=== PATIENT | male | born 1955 | race Caucasian/White ===

== ENCOUNTER 2017-12-15 08:28 | Outpatient (CLI) | payer MEDICAID, SELFPAY ==
[2017-12-15 08:52] LABS: Abs Immature Grans 0.01 k/cumm (0.0-0.09); Absolute Basophil Count 0.02 k/cumm (0.0-0.2); Absolute Eosinophil Count 0.15 k/cumm (0.0-0.7); Absolute Lymphocyte Count 0.81 k/cumm (1.2-3.4); Absolute Monocyte Count 0.38 k/cumm (0.11-0.7); Basophils % 0.6; Eosinophils % 4.3; HCT 35.9 % (40.0-50.0); HGB 12.2 g/dL (13.5-17.5); Immature Grans % 0.3; Lymphocytes % 23.3; Mean Corpuscular Hemoglobin 38.6 pg (27.0-33.0); Mean Corpuscular Volume 113.6 fL (80-95); Mean Platelet Volume 9.5 fL (8.0-11.0); Neutrophils % 60.5; RBC 3.16 m/cumm (4.50-6.00); RBC Distribution Width 14.5 % (11.8-14.1); White Blood Cell Count 3.47 k/cumm (4.4-10.8)
[2017-12-15 09:04] LABS: ALT 45 U/L (12-78); AST 28 U/L (15-37); Albumin 3.3 g/dL (3.4-5.0); Alkaline Phosphatase 100 U/L (46-116); Anion Gap 8.4 mmol/L (3-11); BUN 9 mg/dL (7-18); Bilirubin, Total 0.4 mg/dL (0.2-1.0); CO2 26.6 mmol/L (21.0-32.0); CREATININE 0.96 mg/dL (0.70-1.30); Calcium 8.4 mg/dL (8.5-10.1); Chloride 104 mmol/L (98-107); Glucose 133 mg/dL (70-100); Potassium 3.8 mmol/L (3.5-5.1); Sodium 139 mmol/L (136-145); Total Protein 7.6 g/dL (6.4-8.2)
[2017-12-15 09:07] LABS: Platelet Count 100 x1000/uL (130-400)
[2017-12-15 09:08] LABS: Diff Comment RBC Morph Reviewed; Macrocytosis 2+; Polychromasia Present
[2017-12-18 09:27] LABS: Kappa Free Light Chain 4.01 mg/dl (0.33-1.94); Lambda Free Light Chain 3.14 mg/dl (0.57-2.63)
[2017-12-18 14:15] LABS: Albumin 52.5 % (55.8-66.1)
== END 2017-12-15 08:48 ==
PROVIDERS: Nurse Practitioner Family; PCP Neuromusculoskeletal Medicine & OMM; Visit Provider Internal Medicine Hematology & Oncology
DX: C90.00 Multiple myeloma not having achieved remission (principal)
CPT/HCPCS: 36415; 80053; 83883; 84165; 85025

== ENCOUNTER 2018-04-09 14:11 | Outpatient (CLI) | payer MEDICAID, SELFPAY ==
[2018-04-09 15:56] LABS: Abs Immature Grans 0.02 k/cumm (0.0-0.09); Absolute Basophil Count 0.02 k/cumm (0.0-0.2); Absolute Eosinophil Count 0.16 k/cumm (0.0-0.7); Absolute Lymphocyte Count 0.83 k/cumm (1.2-3.4); Absolute Monocyte Count 0.49 k/cumm (0.11-0.7); Absolute Neutrophil Count 3.05 k/cumm (1.2-6.7); Basophils % 0.4; Eosinophils % 3.5; HCT 35.2 % (40.0-50.0); Immature Grans % 0.4; Lymphocytes % 18.2; Mean Corp. HGB Concentration 34.1 g/dL (32.0-36.0); Mean Corpuscular Hemoglobin 37.6 pg (27.0-33.0); Mean Corpuscular Volume 110.3 fL (80-95); Mean Platelet Volume 9.3 fL (8.0-11.0); Monocytes % 10.7; Neutrophils % 66.8; RBC 3.19 m/cumm (4.50-6.00); RBC Distribution Width 13.8 % (11.8-14.1); White Blood Cell Count 4.57 k/cumm (4.4-10.8)
[2018-04-09 16:23] LABS: ALT 29 U/L (12-78); AST 22 U/L (15-37); Albumin 3.5 g/dL (3.4-5.0); Alkaline Phosphatase 78 U/L (46-116); Anion Gap 8.6 mmol/L (3-11); BUN 13 mg/dL (7-18); Bilirubin, Total 0.4 mg/dL (0.2-1.0); CO2 29.4 mmol/L (21.0-32.0); CREATININE 0.96 mg/dL (0.70-1.30); Calcium 8.6 mg/dL (8.5-10.1); Chloride 102 mmol/L (98-107); Glucose 104 mg/dL (70-100); Potassium 4.2 mmol/L (3.5-5.1); Sodium 140 mmol/L (136-145); Total Protein 7.7 g/dL (6.4-8.2)
[2018-04-09 17:32] LABS: Diff Comment Diff Reviewed; Macrocytosis 2+; Platelet Count 101 x1000/uL (130-400); Polychromasia Present
[2018-04-10 10:40] LABS: Kappa Free Light Chain 3.34 mg/dl (0.33-1.94); Lambda Free Light Chain 1.78 mg/dl (0.57-2.63)
[2018-04-10 12:55] LABS: Albumin 53.9 % (55.8-66.1); Total Protein 7.1 g/dl (6.3-8.2)
== END 2018-04-09 14:31 ==
PROVIDERS: PCP Neuromusculoskeletal Medicine & OMM; Visit Provider Internal Medicine Hematology & Oncology
DX: C90.00 Multiple myeloma not having achieved remission (principal)
CPT/HCPCS: 36415; 80053; 83883; 84165; 85025

== ENCOUNTER 2018-06-29 14:51 | Outpatient (CLI) | payer MEDICAID, SELFPAY ==
[2018-06-29 16:09] LABS: Abs Immature Grans 0.01 k/cumm (0.0-0.09); Absolute Basophil Count 0.02 k/cumm (0.0-0.2); Absolute Eosinophil Count 0.16 k/cumm (0.0-0.7); Absolute Lymphocyte Count 0.85 k/cumm (1.2-3.4); Absolute Monocyte Count 0.54 k/cumm (0.11-0.7); Absolute Neutrophil Count 2.86 k/cumm (1.2-6.7); Basophils % 0.5; Eosinophils % 3.6; HCT 36.8 % (40.0-50.0); HGB 12.6 g/dL (13.5-17.5); Immature Grans % 0.2; Lymphocytes % 19.1; Mean Corp. HGB Concentration 34.2 g/dL (32.0-36.0); Mean Corpuscular Hemoglobin 38.2 pg (27.0-33.0); Mean Corpuscular Volume 111.5 fL (80-95); Mean Platelet Volume 9.5 fL (8.0-11.0); Monocytes % 12.2; Neutrophils % 64.4; Platelet Count 110 x1000/uL (130-400); RBC Distribution Width 13.9 % (11.8-14.1); White Blood Cell Count 4.44 k/cumm (4.4-10.8)
[2018-06-29 16:21] LABS: Diff Comment RBC Morph Reviewed
[2018-06-29 16:22] LABS: Macrocytosis 2+
[2018-06-29 17:10] LABS: ALT 42 U/L (12-78); AST 24 U/L (15-37); Albumin 3.9 g/dL (3.4-5.0); Alkaline Phosphatase 98 U/L (46-116); Anion Gap 8.5 mmol/L (3-11); BUN 18 mg/dL (7-18); Bilirubin, Total 0.4 mg/dL (0.2-1.0); CO2 28.5 mmol/L (21.0-32.0); CREATININE 0.89 mg/dL (0.70-1.30); Calcium 8.4 mg/dL (8.5-10.1); Chloride 103 mmol/L (98-107); Glucose 126 mg/dL (70-100); Potassium 4.7 mmol/L (3.5-5.1); Sodium 140 mmol/L (136-145); Total Protein 7.4 g/dL (6.4-8.2)
[2018-07-02 12:13] LABS: Albumin 54.9 % (55.8-66.1); Total Protein 7.3 g/dl (6.3-8.2)
[2018-07-02 12:23] LABS: IgA 259 mg/dL (85-499); IgG 1484 mg/dL (610-1616); IgM 108 mg/dL (35-242); Kappa Free Light Chain 3.57 mg/dl (0.33-1.94); Lambda Free Light Chain 2.05 mg/dl (0.57-2.63)
== END 2018-06-29 15:11 ==
PROVIDERS: PCP Neuromusculoskeletal Medicine & OMM; Visit Provider Internal Medicine Hematology & Oncology
DX: C90.00 Multiple myeloma not having achieved remission (principal)
CPT/HCPCS: 36415; 80053; 82784; 83883; 84165; 85025

== ENCOUNTER 2018-10-09 12:15 | Outpatient (CLI) | payer MEDICAID, SELFPAY ==
[2018-10-09 12:49] LABS: Abs Immature Grans 0.01 k/cumm (0.0-0.09); Absolute Basophil Count 0.02 k/cumm (0.0-0.2); Absolute Eosinophil Count 0.09 k/cumm (0.0-0.7); Absolute Lymphocyte Count 0.96 k/cumm (1.2-3.4); Absolute Monocyte Count 0.43 k/cumm (0.11-0.7); Absolute Neutrophil Count 4.18 k/cumm (1.2-6.7); Basophils % 0.4; Eosinophils % 1.6; HCT 37.4 % (40.0-50.0); Immature Grans % 0.2; Lymphocytes % 16.9; Mean Corp. HGB Concentration 34.8 g/dL (32.0-36.0); Mean Corpuscular Hemoglobin 38.5 pg (27.0-33.0); Mean Corpuscular Volume 110.7 fL (80-95); Mean Platelet Volume 9.2 fL (8.0-11.0); Monocytes % 7.6; Neutrophils % 73.3; Platelet Count 132 x1000/uL (130-400); RBC 3.38 m/cumm (4.50-6.00); RBC Distribution Width 13.3 % (11.8-14.1); White Blood Cell Count 5.69 k/cumm (4.4-10.8)
[2018-10-09 13:16] LABS: Diff Comment RBC Morph Reviewed; Macrocytosis 3+; Polychromasia Present
[2018-10-09 14:45] LABS: ALT 37 U/L (12-78); AST 16 U/L (15-37); Albumin 3.5 g/dL (3.4-5.0); Alkaline Phosphatase 72 U/L (46-116); Anion Gap 9.7 mmol/L (3-11); BUN 11 mg/dL (7-18); Bilirubin, Total 0.4 mg/dL (0.2-1.0); CO2 26.3 mmol/L (21.0-32.0); CREATININE 0.94 mg/dL (0.70-1.30); Calcium 8.5 mg/dL (8.5-10.1); Chloride 102 mmol/L (98-107); Glucose 87 mg/dL (70-100); Sodium 138 mmol/L (136-145); Total Protein 7.5 g/dL (6.4-8.2)
[2018-10-10 10:48] LABS: Kappa Free Light Chain 4.87 mg/dl (0.33-1.94); Lambda Free Light Chain 1.76 mg/dl (0.57-2.63)
[2018-10-10 13:11] LABS: Albumin 54.6 % (55.8-66.1); Total Protein 7.3 g/dl (6.3-8.2)
== END 2018-10-09 12:35 ==
PROVIDERS: PCP Neuromusculoskeletal Medicine & OMM; Visit Provider Internal Medicine Hematology & Oncology
DX: C90.00 Multiple myeloma not having achieved remission (principal)
CPT/HCPCS: 36415; 80053; 83883; 84165; 85025

== ENCOUNTER 2019-01-21 07:57 | Outpatient (CLI) | payer MEDICAID, SELFPAY ==
[2019-01-21 08:29] LABS: Abs Immature Grans 0.02 k/cumm (0.0-0.09); Absolute Basophil Count 0.02 k/cumm (0.0-0.2); Absolute Eosinophil Count 0.07 k/cumm (0.0-0.7); Absolute Lymphocyte Count 1.14 k/cumm (1.2-3.4); Absolute Monocyte Count 0.45 k/cumm (0.11-0.7); Basophils % 0.5; Eosinophils % 1.6; HCT 38.1 % (40.0-50.0); Immature Grans % 0.5; Lymphocytes % 26.5; Mean Corp. HGB Concentration 34.1 g/dL (32.0-36.0); Mean Corpuscular Hemoglobin 37.5 pg (27.0-33.0); Mean Corpuscular Volume 109.8 fL (80-95); Mean Platelet Volume 8.7 fL (8.0-11.0); Monocytes % 10.5; Neutrophils % 60.4; Platelet Count 137 x1000/uL (130-400); RBC 3.47 m/cumm (4.50-6.00); RBC Distribution Width 13.1 % (11.8-14.1)
[2019-01-21 08:55] LABS: ALT 43 U/L (16-63); AST 22 U/L (15-37); Albumin 3.6 g/dL (3.4-5.0); Alkaline Phosphatase 79 U/L (46-116); Anion Gap 6.4 mmol/L (3-11); BUN 13 mg/dL (7-18); Bilirubin, Total 0.3 mg/dL (0.2-1.0); CO2 31.6 mmol/L (21.0-32.0); CREATININE 0.99 mg/dL (0.70-1.30); Calcium 8.8 mg/dL (8.5-10.1); Chloride 106 mmol/L (98-107); Glucose 84 mg/dL (70-100); Potassium 4.8 mmol/L (3.5-5.1); Sodium 144 mmol/L (136-145); Total Protein 7.7 g/dL (6.4-8.2)
[2019-01-22 12:18] LABS: IgA 276 mg/dL (85-499); IgG 1372 mg/dL (610-1,616); IgM 133 mg/dL (35-242)
[2019-01-22 15:05] LABS: Albumin 55.2 % (55.8-66.1); Total Protein 7.3 g/dL (6.3-8.2)
[2019-01-23 11:42] LABS: Lambda Free Light Chain 1.65 mg/dL (0.57-2.63)
== END 2019-01-21 08:17 ==
PROVIDERS: PCP Neuromusculoskeletal Medicine & OMM; Visit Provider Internal Medicine Hematology & Oncology
DX: C90.00 Multiple myeloma not having achieved remission (principal)
CPT/HCPCS: 36415; 80053; 82784; 83883; 84165; 85025

== ENCOUNTER 2019-04-19 10:13 | Outpatient (CLI) | payer MEDICAID, SELFPAY ==
[2019-04-19 10:41] LABS: Abs Immature Grans 0.01 k/cumm (0.0-0.09); Absolute Basophil Count 0.02 k/cumm (0.0-0.2); Absolute Eosinophil Count 0.06 k/cumm (0.0-0.7); Absolute Lymphocyte Count 1.03 k/cumm (1.2-3.4); Absolute Monocyte Count 0.51 k/cumm (0.11-0.7); Absolute Neutrophil Count 3.86 k/cumm (1.2-6.7); Basophils % 0.4; Eosinophils % 1.1; HCT 40.7 % (40.0-50.0); HGB 14.3 g/dL (13.5-17.5); Immature Grans % 0.2 %; Lymphocytes % 18.8; Mean Corp. HGB Concentration 35.1 g/dL (32.0-36.0); Mean Corpuscular Hemoglobin 37.9 pg (27.0-33.0); Mean Platelet Volume 8.6 fL (8.0-11.0); Monocytes % 9.3; Neutrophils % 70.2; Platelet Count 140 x1000/uL (130-400); RBC 3.77 m/cumm (4.50-6.00); RBC Distribution Width 13.3 % (11.8-14.1); White Blood Cell Count 5.49 k/cumm (4.4-10.8)
[2019-04-19 11:00] LABS: ALT 43 U/L (16-63); AST 36 U/L (15-37); Albumin 3.8 g/dL (3.4-5.0); Alkaline Phosphatase 75 U/L (46-116); Anion Gap 7.9 mmol/L (3-11); BUN 17 mg/dL (7-18); Bilirubin, Total 0.4 mg/dL (0.2-1.0); CO2 28.1 mmol/L (21.0-32.0); CREATININE 0.92 mg/dL (0.70-1.30); Calcium 8.6 mg/dL (8.5-10.1); Chloride 104 mmol/L (98-107); Glucose 89 mg/dL (74-106); Potassium 4.1 mmol/L (3.5-5.1); Sodium 140 mmol/L (136-145); Total Protein 7.6 g/dL (6.4-8.2)
[2019-04-19 11:07] LABS: Diff Comment RBC Morph Reviewed
[2019-04-19 11:08] LABS: Macrocytosis 2+
[2019-04-22 12:23] LABS: IgA 263 mg/dL (85-499); IgG 1357 mg/dL (610-1,616); IgM 139 mg/dL (35-242); Kappa Free Light Chain 9.63 mg/dL (0.33-1.94); Lambda Free Light Chain 1.44 mg/dL (0.57-2.63)
[2019-04-22 12:26] LABS: Albumin 57.8 % (55.8-66.1); Total Protein 7.4 g/dL (6.3-8.2)
== END 2019-04-19 10:33 ==
PROVIDERS: PCP Neuromusculoskeletal Medicine & OMM; Visit Provider Internal Medicine Hematology & Oncology
DX: C90.00 Multiple myeloma not having achieved remission (principal)
CPT/HCPCS: 36415; 80053; 82784; 83883; 84165; 85025

== ENCOUNTER 2019-05-30 02:34 | Outpatient (CLI) | payer MEDICAID, SELFPAY ==
[2019-05-30 10:49] LABS: Abs Immature Grans 0.02 k/cumm (0.0-0.09); Absolute Basophil Count 0.01 k/cumm (0.0-0.2); Absolute Eosinophil Count 0.03 k/cumm (0.0-0.7); Absolute Lymphocyte Count 0.49 k/cumm (1.2-3.4); Absolute Monocyte Count 0.24 k/cumm (0.11-0.7); Absolute Neutrophil Count 6.82 k/cumm (1.2-6.7); Basophils % 0.1; Eosinophils % 0.4; HGB 14.2 g/dL (13.5-17.5); Immature Grans % 0.3 %; Lymphocytes % 6.4; Mean Corp. HGB Concentration 35.5 g/dL (32.0-36.0); Mean Corpuscular Hemoglobin 38.3 pg (27.0-33.0); Mean Corpuscular Volume 107.8 fL (80-95); Mean Platelet Volume 9.1 fL (8.0-11.0); Monocytes % 3.2; Neutrophils % 89.6; Platelet Count 141 x1000/uL (130-400); RBC 3.71 m/cumm (4.50-6.00); White Blood Cell Count 7.61 k/cumm (4.4-10.8)
[2019-05-30 11:02] LABS: ALT 56 U/L (16-63); AST 29 U/L (15-37); Albumin 3.5 g/dL (3.4-5.0); Alkaline Phosphatase 68 U/L (46-116); Anion Gap 9.6 mmol/L (3-11); BUN 15 mg/dL (7-18); Bilirubin, Total 0.4 mg/dL (0.2-1.0); CO2 25.4 mmol/L (21.0-32.0); CREATININE 1.27 mg/dL (0.70-1.30); Calcium 8.4 mg/dL (8.5-10.1); Chloride 103 mmol/L (98-107); Estimated GFR 57.28 (mL/min/1.73m2); Glucose 121 mg/dL (74-106); Potassium 4.2 mmol/L (3.5-5.1); Sodium 138 mmol/L (136-145); Total Protein 7.2 g/dL (6.4-8.2)
[2019-05-30 11:17] LABS: Diff Comment RBC Morph Reviewed; Macrocytosis 1+; Polychromasia Present
[2019-05-31 11:07] LABS: IgA 223 mg/dL (85-499); IgG 1050 mg/dL (610-1,616); IgM 126 mg/dL (35-242); Kappa Free Light Chain 7.97 mg/dL (0.33-1.94); Lambda Free Light Chain 1.24 mg/dL (0.57-2.63)
[2019-05-31 13:09] LABS: Albumin 60.2 % (55.8-66.1); Total Protein 6.9 g/dL (6.3-8.2)
== END 2019-05-30 02:54 ==
PROVIDERS: Nurse Practitioner Family; PCP Neuromusculoskeletal Medicine & OMM; Visit Provider Internal Medicine Hematology & Oncology
DX: C90.00 Multiple myeloma not having achieved remission (principal)
CPT/HCPCS: 36415; 80053; 82784; 83883; 84165; 85025

== ENCOUNTER 2019-07-03 04:11 | Outpatient (RCR) | payer MEDICAID, SELFPAY ==
[2019-07-03 07:49] LABS: Abs Immature Grans 0.01 k/cumm (0.0-0.09); Absolute Eosinophil Count 0.03 k/cumm (0.0-0.7); Absolute Lymphocyte Count 0.57 k/cumm (1.2-3.4); Absolute Monocyte Count 0.29 k/cumm (0.11-0.7); Absolute Neutrophil Count 2.52 k/cumm (1.2-6.7); Eosinophils % 0.9; HCT 36.3 % (40.0-50.0); HGB 12.9 g/dL (13.5-17.5); Immature Grans % 0.3 %; Lymphocytes % 16.7; Mean Corp. HGB Concentration 35.5 g/dL (32.0-36.0); Mean Corpuscular Hemoglobin 37.1 pg (27.0-33.0); Mean Corpuscular Volume 104.3 fL (80-95); Mean Platelet Volume 9.6 fL (8.0-11.0); Monocytes % 8.5; Neutrophils % 73.6; RBC 3.48 m/cumm (4.50-6.00); RBC Distribution Width 11.7 % (11.8-14.1); White Blood Cell Count 3.42 k/cumm (4.4-10.8)
[2019-07-03 07:56] LABS: ALT 32 U/L (16-63); AST 21 U/L (15-37); Alkaline Phosphatase 71 U/L (46-116); Anion Gap 7.7 mmol/L (3-11); BUN 10 mg/dL (7-18); Bilirubin, Total 0.4 mg/dL (0.2-1.0); CO2 27.3 mmol/L (21.0-32.0); CREATININE 0.96 mg/dL (0.70-1.30); Calcium 8.4 mg/dL (8.5-10.1); Chloride 105 mmol/L (98-107); Glucose 115 mg/dL (74-106); Potassium 3.9 mmol/L (3.5-5.1); Sodium 140 mmol/L (136-145); Total Protein 6.6 g/dL (6.4-8.2)
[2019-07-03 08:03] LABS: Platelet Count 89 x1000/uL (130-400)
[2019-07-03 08:04] LABS: Diff Comment PLT Morph Reviewed; Polychromasia Present
[2019-07-03] MEDS: Normal Saline Flush 10 ML SYR IVP (10:02)
== END 2019-07-04 23:59 | disposition home or self-care (01) ==
LOC: INF 04:11
PROVIDERS: Nurse Practitioner Family; PCP Neuromusculoskeletal Medicine & OMM; Visit Provider Internal Medicine Hematology & Oncology
DX: C90.00 Multiple myeloma not having achieved remission (principal); Z45.2 Encounter for adjustment and management of vascular access device
CPT/HCPCS: 36591; 80053; 85025

== ENCOUNTER 2019-07-31 01:41 | Outpatient (RCR) | payer MEDICAID, SELFPAY ==
[2019-07-10] MEDS: Normal Saline Flush 10 ML SYR IVP (10:46)
[2019-07-10 11:07] LABS: Abs Immature Grans 0.01 k/cumm (0.0-0.09); Absolute Eosinophil Count 0.03 k/cumm (0.0-0.7); Absolute Lymphocyte Count 0.89 k/cumm (1.2-3.4); Absolute Neutrophil Count 2.94 k/cumm (1.2-6.7); Eosinophils % 0.7; HCT 34.9 % (40.0-50.0); HGB 12.2 g/dL (13.5-17.5); Immature Grans % 0.2 %; Lymphocytes % 20.8; Mean Corpuscular Hemoglobin 36.9 pg (27.0-33.0); Mean Corpuscular Volume 105.4 fL (80-95); Mean Platelet Volume 9.5 fL (8.0-11.0); Monocytes % 9.4; Neutrophils % 68.9; RBC 3.31 m/cumm (4.50-6.00); RBC Distribution Width 12.2 % (11.8-14.1); White Blood Cell Count 4.27 k/cumm (4.4-10.8)
[2019-07-10 11:17] LABS: ALT 31 U/L (16-63); AST 18 U/L (15-37); Albumin 3.2 g/dL (3.4-5.0); Alkaline Phosphatase 65 U/L (46-116); Anion Gap 7.4 mmol/L (3-11); BUN 15 mg/dL (7-18); Bilirubin, Total 0.4 mg/dL (0.2-1.0); CO2 27.6 mmol/L (21.0-32.0); CREATININE 0.81 mg/dL (0.70-1.30); Calcium 8.1 mg/dL (8.5-10.1); Chloride 103 mmol/L (98-107); Glucose 115 mg/dL (74-106); Sodium 138 mmol/L (136-145); Total Protein 6.3 g/dL (6.4-8.2)
[2019-07-10 11:18] LABS: Diff Comment RBC Morph Reviewed; Macrocytosis 3+; Platelet Count 78 x1000/uL (130-400); Polychromasia Present
[2019-07-17] MEDS: Normal Saline Flush 10 ML SYR IVP (08:14)
[2019-07-17 08:21] LABS: Abs Immature Grans 0.01 k/cumm (0.0-0.09); Absolute Basophil Count 0.01 k/cumm (0.0-0.2); Absolute Eosinophil Count 0.01 k/cumm (0.0-0.7); Absolute Lymphocyte Count 0.76 k/cumm (1.2-3.4); Absolute Monocyte Count 0.43 k/cumm (0.11-0.7); Absolute Neutrophil Count 4.25 k/cumm (1.2-6.7); Basophils % 0.2; Eosinophils % 0.2; HCT 35.4 % (40.0-50.0); HGB 12.5 g/dL (13.5-17.5); Immature Grans % 0.2 %; Lymphocytes % 13.9; Mean Corp. HGB Concentration 35.3 g/dL (32.0-36.0); Mean Corpuscular Hemoglobin 37.1 pg (27.0-33.0); Mean Platelet Volume 10.5 fL (8.0-11.0); Monocytes % 7.9; Neutrophils % 77.6; RBC 3.37 m/cumm (4.50-6.00); RBC Distribution Width 12.8 % (11.8-14.1); White Blood Cell Count 5.47 k/cumm (4.4-10.8)
[2019-07-17 08:36] LABS: ALT 31 U/L (16-63); AST 12 U/L (15-37); Albumin 3.2 g/dL (3.4-5.0); Alkaline Phosphatase 63 U/L (46-116); Anion Gap 8.3 mmol/L (3-11); BUN 20 mg/dL (7-18); Bilirubin, Total 0.6 mg/dL (0.2-1.0); CO2 25.7 mmol/L (21.0-32.0); CREATININE 1.02 mg/dL (0.70-1.30); Calcium 8.5 mg/dL (8.5-10.1); Chloride 104 mmol/L (98-107); Glucose 138 mg/dL (74-106); Potassium 3.8 mmol/L (3.5-5.1); Sodium 138 mmol/L (136-145); Total Protein 6.2 g/dL (6.4-8.2)
[2019-07-17 08:43] LABS: Diff Comment PLT Morph Reviewed; Macrocytosis 3+; Platelet Count 55 x1000/uL (130-400)
[2019-07-17 08:44] LABS: Polychromasia Present
[2019-07-19 11:38] LABS: IgA 44 mg/dL (85-499); IgG 546 mg/dL (610-1,616); IgM 44 mg/dL (35-242); Kappa Free Light Chain 1.18 mg/dL (0.33-1.94); Lambda Free Light Chain <0.44 mg/dL (0.57-2.63)
[2019-07-23 10:24] LABS: Albumin 60.1 % (55.8-66.1); Comment (See Note); Total Protein 5.7 g/dL (6.3-8.2)
[2019-07-23 11:50] LABS: Immunotyping, Serum (See Note)
[2019-07-24 10:48] LABS: Abs Immature Grans 0.01 k/cumm (0.0-0.09); Absolute Eosinophil Count 0.02 k/cumm (0.0-0.7); Absolute Lymphocyte Count 0.65 k/cumm (1.2-3.4); Absolute Monocyte Count 0.48 k/cumm (0.11-0.7); Absolute Neutrophil Count 4.57 k/cumm (1.2-6.7); Eosinophils % 0.3; HGB 11.5 g/dL (13.5-17.5); Immature Grans % 0.2 %; Lymphocytes % 11.3; Mean Corp. HGB Concentration 34.8 g/dL (32.0-36.0); Mean Corpuscular Hemoglobin 37.1 pg (27.0-33.0); Mean Corpuscular Volume 106.5 fL (80-95); Mean Platelet Volume 9.7 fL (8.0-11.0); Monocytes % 8.4; Neutrophils % 79.8; RBC Distribution Width 13.2 % (11.8-14.1); White Blood Cell Count 5.73 k/cumm (4.4-10.8)
[2019-07-24 10:54] LABS: ALT 39 U/L (16-63); AST 16 U/L (15-37); Albumin 3.2 g/dL (3.4-5.0); Alkaline Phosphatase 66 U/L (46-116); Anion Gap 6.6 mmol/L (3-11); BUN 15 mg/dL (7-18); Bilirubin, Total 0.9 mg/dL (0.2-1.0); CO2 29.4 mmol/L (21.0-32.0); CREATININE 0.95 mg/dL (0.70-1.30); Calcium 8.2 mg/dL (8.5-10.1); Chloride 100 mmol/L (98-107); Glucose 111 mg/dL (74-106); Potassium 3.9 mmol/L (3.5-5.1); Sodium 136 mmol/L (136-145); Total Protein 6.3 g/dL (6.4-8.2)
[2019-07-24] MEDS: Normal Saline Flush 10 ML SYR IVP (10:55)
[2019-07-24 11:02] LABS: Platelet Count 79 x1000/uL (130-400)
[2019-07-24 11:03] LABS: Basophilic Stippling Present; Diff Comment PLT Morph Reviewed; Macrocytosis 3+; Polychromasia Present
== END 2019-08-04 23:59 | disposition home or self-care (01) ==
LOC: INF 01:41
PROVIDERS: PCP Neuromusculoskeletal Medicine & OMM; Visit Provider Nurse Practitioner Family
DX: C90.00 Multiple myeloma not having achieved remission (principal); Z45.2 Encounter for adjustment and management of vascular access device
CPT/HCPCS: 36591; 80053; 82784; 83883; 84165; 85025; 86320

== ENCOUNTER 2019-08-07 14:59 | Outpatient (REF) | payer MEDICAID, SELFPAY ==
[2019-08-07 14:45] LABS: Abs Immature Grans 0.01 k/cumm (0.0-0.09); Absolute Eosinophil Count 0.01 k/cumm (0.0-0.7); Absolute Lymphocyte Count 0.55 k/cumm (1.2-3.4); Absolute Monocyte Count 0.48 k/cumm (0.11-0.7); Absolute Neutrophil Count 3.07 k/cumm (1.2-6.7); Eosinophils % 0.2; HCT 31.9 % (40.0-50.0); HGB 10.8 g/dL (13.5-17.5); Immature Grans % 0.2 %; Lymphocytes % 13.3; Mean Corp. HGB Concentration 33.9 g/dL (32.0-36.0); Mean Corpuscular Hemoglobin 36.6 pg (27.0-33.0); Mean Corpuscular Volume 108.1 fL (80-95); Mean Platelet Volume 11.4 fL (8.0-11.0); Monocytes % 11.7; Neutrophils % 74.6; RBC 2.95 m/cumm (4.50-6.00); RBC Distribution Width 14.1 % (11.8-14.1); White Blood Cell Count 4.12 k/cumm (4.4-10.8)
[2019-08-07 14:56] LABS: ALT 29 U/L (16-63); AST 17 U/L (15-37); Alkaline Phosphatase 69 U/L (46-116); Anion Gap 7.5 mmol/L (3-11); BUN 14 mg/dL (7-18); Bilirubin, Total 0.6 mg/dL (0.2-1.0); CO2 26.5 mmol/L (21.0-32.0); CREATININE 0.85 mg/dL (0.70-1.30); Calcium 8.4 mg/dL (8.5-10.1); Chloride 103 mmol/L (98-107); Glucose 129 mg/dL (74-106); Potassium 3.4 mmol/L (3.5-5.1); Sodium 137 mmol/L (136-145); Total Protein 5.8 g/dL (6.4-8.2)
[2019-08-07 15:23] LABS: Platelet Count 48 x1000/uL (130-400)
[2019-08-07 15:24] LABS: Diff Comment PLT Morph Reviewed; Polychromasia Present
[2019-08-08 12:02] LABS: IgA 47 mg/dL (85-499); IgG 479 mg/dL (610-1,616); IgM 30 mg/dL (35-242); Kappa Free Light Chain 0.72 mg/dL (0.33-1.94); Lambda Free Light Chain <0.44 mg/dL (0.57-2.63)
[2019-08-08 16:31] LABS: Albumin 56.5 % (55.8-66.1); Comment (See Note); Monoclonal Spike 3.1 % (None Seen); Total Protein 5.3 g/dL (6.3-8.2)
== END 2019-08-07 15:19 ==
LOC: LBN 14:59
PROVIDERS: Internal Medicine Hematology & Oncology; PCP Neuromusculoskeletal Medicine & OMM; Visit Provider Nurse Practitioner Family
DX: C90.00 Multiple myeloma not having achieved remission (principal)
CPT/HCPCS: 80053; 82784; 83883; 84165; 85025

== ENCOUNTER 2019-08-14 14:08 | Emergency (ER) | payer MEDICAID, SELFPAY ==
[2019-08-14 14:28] VITALS: BP 128/78; PULSE 89; RESP 18; O2SAT 92
--- NOTE | 2019-08-14 14:41 | W.ED.GENAD ---
Discharge Plan Disposition Patient Disposition: HOME Condition: Stable Discharge Details Chief Complaint: Dizzy/Sync Clinical Impression: Pneumonia, Generalized weakness Primary Care Provider: Cassius Aranda ED Provider: Radha Reddy Home Meds and New Rx's Prescriptions: New levofloxacin [Levaquin] 750 mg tablet 750 mg PO DAILY 5 Days Qty: 5 RF: 0 Continued morphine 30 mg tablet extended release 30 mg PO BID RF: 0 atorvastatin 40 mg tablet 40 mg PO DAILY RF: 0 tamsulosin 0.4 mg capsule 0.4 mg PO DAILY RF: 0 aspirin 81 mg tablet,chewable 81 mg PO DAILY AM RF: 0 montelukast 10 mg tablet 10 mg PO 4-6XD RF: 0 acyclovir 400 mg tablet RF: 0 lansoprazole 30 mg capsule,delayed release(DR/EC) 30 mg PO DAILY RF: 0 ipratropium-albuterol 0.5 mg-3 mg(2.5 mg base)/3 mL solution for nebulization INHALATION RF: 0 morphine 15 mg Tablet Extended Release 15 mg PO BID RF: 0 montelukast 10 mg tablet 10 mg RF: 0 Discharge Instructions Instructions: Weakness (ED), Pneumonia (ED) Additional Instructions: Drink plenty of fluids and get plenty of rest. Take the antibiotics until finished. Call your primary care doctor's office tomorrow to schedule a follow-up appointment for reevaluation. Return immediately to the emergency department if you develop any worsening or new concerning symptoms. Discharge Data Discharge Date/Time-TO BE ENTERED AT DEPARTURE: 08/14/19 18:54 Discharge Physician: Radha Reddy Medical Decision Making 63-year-old male with a history of multiple myeloma on chemotherapy and weekly infusions who presents for feeling weak and wobbly for the past 2 days. No focal deficits on exam. No acute findings on lung exam. O2 sat ranged between mid to high 90s. Afebrile. He appears nontoxic. EKG on arrival notes a rate of 81, sinus with less than [address] depression in V3 and V4 which has been seen in previous EKG. No acute ST elevation. Differential diagnosis includes electrolyte abnormality, anemia, UTI, pneumonia, ACS, CVA. Will place an IV, bolus IV fluids, screening labs, chest x-ray, CT head and reassess. Labs and imaging reviewed. White blood cell count 3.87, hemoglobin 10.3, platelets 33. These appear consistent with recent chemotherapy and variable fluctuations. He has no complaint of acute bleeding. No neutropenia. No bands. Troponin negative. Urinalysis negative. Chest x-ray noted near complete opacification left hemithorax which may represent pneumonia, mass or pleural effusion recommended CT scan. CT head negative for acute findings. CT chest obtained which noted what appears to be multifocal pneumonia, also lytic lesions in the spine likely consistent with his multiple myeloma. Discussed with patient that considering his history and diagnosis of pneumonia, can admit for antibiotics, fluids and observation. Patient states he feels much better and is refusing admission. Disposition decision made weighing the risks and benefits of hospitalization versus outpatient treatment, the risk for further decompensation, and the patient's wishes. He was able to ambulate around the ED and had no complaint of dizziness, shortness of breath or chest pain. He states he would prefer to be treated with antibiotics at home. He was given a dose of Levaquin here as well as prescription. He was advised to call his PCP for follow-up and to return here immediately with any worsening symptoms. Usual and customary return precautions given prior to discharge. Medical Records Medical records reviewed: Yes I reviewed the patient's medical records. Imaging Data Radiologic Study: Radiologist's impression: XR CHEST 2V PA LATERAL CLINICAL HISTORY: weakness, r/o acute disease TECHNIQUE: 2D digital imaging was performed. COMPARISON: CR CHEST 2 VIEWS PA,LAT from 03/19/2015 FINDINGS: MEDIASTINUM: Normal. HEART: Normal. PULMONARY VASCULATURE: Normal. LUNGS: Since the prior examination, there has been increasing opacity involving nearly the entirety of the left hemithorax. In addition, scattered opacities are seen in the right lung. PLEURAL SPACE: No pleural effusion or pneumothorax. BONE:There is an old mid thoracic compression fracture. OTHER FINDINGS:There is a right-sided Sxqykf-B-Humc catheter. The tip of the catheter is in good position at the junction of the superior vena cava and right atrium. IMPRESSION: 1. Near complete opacification of the left medial hemithorax. This may represent pneumonia, mass, pleural effusion or some combination. CT scan may be considered for further evaluation. 2. Airspace opacities in the right lung. This may represent multifocal pneumonia. Pulmonary nodules cannot be excluded. CT HEAD WO CLINICAL HISTORY: weak and wobbly, r/o acute cva. TECHNIQUE: Imaging Protocol: Axial computed tomography images with coronal and sagittal reformatted images were created and reviewed COMPARISON: No previous for comparison FINDINGS: Ventricles and Extra axial spaces: Normal in size and morphology for the patient's age. Hemorrhage: None. Cerebral parenchyma: There is an old infarct in the superior right frontal lobe. Linear cortical hyperdensities seen in the region of this infarct likely representing calcification in the setting of cortical laminar necrosis. Old basal gangliar infarcts are seen. There is small vessel ischemic disease. No acute territorial infarct is present. Midline shift: None. Brainstem/Cerebellum: Normal. Calvarium: Normal. Visualized Paranasal sinuses/Mastoids: Clear. Soft Tissues: Soft tissue calcifications in the anterior scalp. These are of uncertain if any clinical significance. IMPRESSION: 1. 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 2. Cortical based hyperdensity in the region of this infarct likely representing calcifications in the setting of cortical laminar necrosis. 3. No definite acute intracranial process. If there is continued concern, an MRI may be obtained for further evaluation. CT Angiography Chest With Contrast Exam date and time: 08/14/2019 5:06 PM Age: 63 years old Clinical indication: Shortness of breath; Patient HX: Weakness, hypoxia R/O pneumonia vs pe; Additional info: Patient unable to raise arms for exam do to pain and unable to breathe with arms above head. TECHNIQUE: Imaging protocol: Computed tomographic angiography of the chest with intravenous contrast. 3D rendering: MIP and/or 3D reconstructed images were created by the technologist. Radiation optimization: All CT scans at this facility use at least one of these dose optimization techniques: automated exposure control; mA and/or kV adjustment per patient size (includes targeted exams where dose is matched to clinical indication); or iterative reconstruction. Contrast material: OMNIPAQUE 350; Contrast volume: 100 ml; Contrast route: IV; COMPARISON: CR XR CHEST 2V PA LATERAL 08/14/2019 4:38 PM FINDINGS: Tubes, catheters and devices: Right-sided medication port. Pulmonary arteries: No filling defects within the main, lobar, segmental, and subsegmental pulmonary arterial branches. Aorta: Ectasia of the ascending thoracic aorta measuring up to 3.9 cm in diameter. No evidence of dissection. Mild atherosclerotic calcifications of the aorta. Lungs: Scattered bilateral consolidative and ground-glass opacities, most prominent region of consolidation in the left lung apex with air bronchograms. Pleural space: No pleural effusion or pneumothorax. Heart: Mild calcifications of the coronary arteries. Lymph nodes: Scattered prominent mediastinal lymph nodes. Bones/joints: Numerous lytic lesions throughout the visualized bones, most pronounced in the spine, concerning for osseous metastatic disease. Moderate pathologic compression fracture of T7. Soft tissues: Unremarkable. IMPRESSION: 1. Scattered bilateral consolidative and ground-glass opacities, most prominent region of consolidation in the left lung apex with air bronchograms. Findings most concerning for multifocal pneumonia. 2. Numerous lytic lesions throughout the visualized bones, most pronounced in the spine, concerning for osseous metastatic disease. Moderate pathologic compression fracture of T7. 3. No CTA evidence of pulmonary embolism. 4. Other findings, as above. Lab Data Lab results reviewed: Yes I reviewed the patient's lab results. Labs: Laboratory Tests Range/Units 08/14/19 08/14/19 08/14/19 15:59 15:59 17:15 WBC (4.4-10.8) k/cumm 3.87 L D RBC (4.50-6.00) m/cumm 2.79 L Hgb (13.5-17.5) g/dL 10.3 L Hct (40.0-50.0) % 30.5 L MCV (80-95) fL 109.3 H MCH (27.0-33.0) pg 36.9 H MCHC (32.0-36.0) g/dL 33.8 RDW (11.8-14.1) % 14.4 H Plt Count (130-400) x1000/uL 33 L MPV (8.0-11.0) fL 11.4 H Immature Gran % % 0.3 Neutrophils % 73.1 Lymphocytes % 15.2 Monocytes % 10.9 Eosinophils % 0.5 Basophils % 0.0 Absolute Neutrophils (1.2-6.7) k/cumm 2.83 Absolute Lymphocytes (1.2-3.4) k/cumm 0.59 L Absolute Monocytes (0.11-0.7) k/cumm 0.42 Absolute Eosinophils (0.0-0.7) k/cumm 0.02 Absolute Basophils (0.0-0.2) k/cumm 0.00 Differential Comment Plt morph reviewed RBC Morphology See below Polychromasia Present Poikilocytosis 1+ Basophilic Stippling Present Anisocytosis 1+ Macrocytosis 2+ Sodium (136-145) mmol/L 140 Potassium (3.5-5.1) mmol/L 3.7 Chloride (98-107) mmol/L 107 Carbon Dioxide (21.0-32.0) mmol/L 27.8 Anion Gap (3-11) mmol/L 5.2 BUN (7-18) mg/dL 12 Creatinine (0.70-1.30) mg/dL 0.76 Estimated GFR/1.73 m2 (mL/min/1.73m2) >= 60.00 Glucose (74-106) mg/dL 99 Calcium (8.5-10.1) mg/dL 8.1 L Magnesium (1.8-2.4) mg/dL 2.2 Total Bilirubin (0.2-1.0) mg/dL 0.4 AST (15-37) U/L 16 ALT (16-63) U/L 28 Alkaline Phosphatase (46-116) U/L 62 Troponin I (<0.06) ng/mL < 0.05 Total Protein (6.4-8.2) g/dL 5.6 L Albumin (3.4-5.0) g/dL 2.8 L Urine Color (Yellow) Yellow Urine Clarity (Clear) Clear Urine pH (5-8) 5.5 Ur Specific [place] (1.005-1.025) <= 1.005 Urine Protein (Negative) mg/dL Negative Urine Ketones (Negative) mg/dL Negative Urine Blood (Negative) Negative Urine Nitrite (Negative) Negative Urine Bilirubin (Negative) Negative Urine Urobilinogen (Up TO 0.2) EU/dL 0.2 Ur Leukocyte Esterase (Negative) Negative Urine Glucose (Negative) mg/dL Negative ECG Data Attestation: I personally reviewed and interpreted this ECG (s) as follows: Interpretation: Rate of 81, sinus, less than [address] depression in V3 and V4, no acute ST elevation. OK 190. QTc 411. QRS 90. HPI General Mode of arrival: ambulatory. Date/Time Provider Initiated Documentation: 08/14/19 14:24. Limitations to Documentation: no limitations. Information obtained by: patient. HPI Narrative: Patient is a 63-year-old male with a history of multiple myeloma on chemotherapy and weekly infusions who presents for feeling weak and wobbly for the past 2 days. He states he only feels the symptoms when he is up and walking around. When he is laying down he has no symptoms. He denies any known fever, cough, chest pain, shortness of breath, abdominal pain, vomiting, diarrhea, urinary symptoms, recent travel, recent known exposure to coronavirus. Patient was seen at [facility] this morning where he got some IV fluid without any relief. He did not receive his infusion today due to his current symptoms and was sent to the ER for further evaluation. Related Data Home Medications Medication Instructions Recorded Confirmed acyclovir 08/14/19 aspirin 81 mg PO DAILY AM 08/14/19 08/14/19 atorvastatin 40 mg PO DAILY 08/14/19 08/14/19 ipratropium-albuterol ml INHALATION 08/14/19 08/14/19 lansoprazole 30 mg PO DAILY 08/14/19 08/14/19 levofloxacin [Levaquin] 750 mg PO DAILY 5 Days #5 tab 08/14/19 montelukast 10 mg 08/14/19 montelukast 10 mg PO 4-6XD 08/14/19 08/14/19 morphine 15 mg PO BID 08/14/19 08/14/19 morphine 30 mg PO BID 08/14/19 08/14/19 tamsulosin 0.4 mg PO DAILY 08/14/19 08/14/19 Previous Rx's Medication Instructions Recorded levofloxacin [Levaquin] 750 mg PO DAILY 5 Days #5 tab 08/14/19 Allergies Allergy/AdvReac Type Severity Reaction Status Date / Time amoxicillin Allergy Unverified 08/14/19 14:57 lenalidomide Allergy Unverified 08/14/19 14:56 General Stated Complaint: Dizzy/Sync TISHA: 2 Review of Systems All systems reviewed & are unremarkable except as noted in HPI and below Constitutional Constitutional: Reports as per HPI, Denies chills and Denies fever(s) Eyes Eyes: Denies blurry vision ENT Ears, Nose, Mouth, and Throat: Denies dizziness, Denies sore throat and Denies throat swelling Cardiovascular Cardiovascular: Denies chest pain and Denies dyspnea Respiratory Respiratory: Denies cough and Denies dyspnea Gastrointestinal Gastrointestinal: Denies abdominal pain, Denies diarrhea and Denies vomiting Genitourinary Genitourinary: Denies hematuria and Denies dysuria Musculoskeletal Musculoskeletal: Denies back pain and Denies numbness Integumentary/Breasts Skin/Breast: Denies lesions and Denies rash Neurologic Neurologic: Denies dizziness, Denies localized weakness, Denies numbness and Reports other (weak and wobbly ) Allergic/Immunologic Allergic/Immunologic: Denies throat swelling [facility] Medical History (Updated 08/15/19 @ 16:22 by Radha Reddy DO) Hx of hyperlipidemia (Acute) Multiple myeloma (Acute) Social History Smoking/Tobacco Use Status: Former Tobacco Use Alcohol Intake: current Substance use type: does not use Exam Const General: cooperative and no acute distress Orientation: alert, awake and oriented x3 HENMT Head: normal to inspection Face and sinus: normal facial exam Eyes General: appearance normal, both eyes and all related structures EOM: EOM intact bilaterally Neck Neck: normal visual inspection and No submandibular swelling Lymphatic: no lymphadenopathy noted Chest Chest: normal inspection of the chest and no tenderness Other: Port right chest. Resp Effort & Inspection: normal respiratory effort and able to speak in complete sentences Auscultation: clear to auscultation bilaterally Cardio Rate: regular rate Rhythm: regular rhythm GI Inspection: normal to inspection Palpation: soft, not firm, not rigid and nontender Auscultation: normal bowel sounds Skin General skin exam: no rashes or lesions noted Neuro General: patient alert, patient awake and patient oriented x3 Cognition: normal cognition Speech: speech normal Motor: muscle tone normal throughout Sensory Exam: no sensory deficits noted Extrem General: normal to inspection, full ROM, capillary refill normal, no calf tenderness bilaterally and no edema Psych Appearance: grossly normal Mental Status: mental status grossly normal Speech and Movement: speech and movement normal Affect: normal affect Course Vital Signs Vital signs: Vital Signs Pulse 89 08/14/19 14:28 Respiratory Rate 18 08/14/19 14:28 Blood Pressure 128/78 08/14/19 14:28 Pulse Oximetry 92 L 08/14/19 14:28 Pulse 89 08/14/19 14:28 Respiratory Rate 18 08/14/19 14:28 Blood Pressure 128/78 08/14/19 14:28 Blood Pressure Position Supine 08/14/19 14:28 Pulse Oximetry 92 L 08/14/19 14:28 Oxygen Delivery Method Room Air 08/14/19 14:28 Oxygen Flow Rate 0 08/14/19 14:28 Pain Level 0 08/14/19 14:28
[2019-08-14] MEDS: Normal Saline 1,000 ML 1000 ML IV (16:02)
[2019-08-14 16:04] LABS: Abs Immature Grans 0.01 k/cumm (0.0-0.09); Absolute Eosinophil Count 0.02 k/cumm (0.0-0.7); Absolute Lymphocyte Count 0.59 k/cumm (1.2-3.4); Absolute Monocyte Count 0.42 k/cumm (0.11-0.7); Absolute Neutrophil Count 2.83 k/cumm (1.2-6.7); Eosinophils % 0.5; HCT 30.5 % (40.0-50.0); HGB 10.3 g/dL (13.5-17.5); Immature Grans % 0.3 %; Lymphocytes % 15.2; Mean Corp. HGB Concentration 33.8 g/dL (32.0-36.0); Mean Corpuscular Hemoglobin 36.9 pg (27.0-33.0); Mean Corpuscular Volume 109.3 fL (80-95); Mean Platelet Volume 11.4 fL (8.0-11.0); Monocytes % 10.9; Neutrophils % 73.1; RBC 2.79 m/cumm (4.50-6.00); RBC Distribution Width 14.4 % (11.8-14.1); White Blood Cell Count 3.87 k/cumm (4.4-10.8)
--- NOTE | 2019-08-14 16:33 | DI.CT_ITS ---
EXAM: CT HEAD WO CLINICAL HISTORY: weak and wobbly, r/o acute cva. TECHNIQUE: Imaging Protocol: Axial computed tomography images with coronal and sagittal reformatted images were created and reviewed COMPARISON: No previous for comparison FINDINGS: Ventricles and Extra axial spaces: Normal in size and morphology for the patient's age. Hemorrhage: None. Cerebral parenchyma: There is an old infarct in the superior right frontal lobe. Linear cortical hyp erdensities seen in the region of this infarct likely representing calcification in the setting of co rtical laminar necrosis. Old basal gangliar infarcts are seen. There is small vessel ischemic disea se. No acute territorial infarct is present. Midline shift: None. Brainstem/Cerebellum: Normal. Calvarium: Normal. Visualized Paranasal sinuses/Mastoids: Clear. Soft Tissues: Soft tissue calcifications in the anterior scalp. These are of uncertain if any clinic al significance. IMPRESSION: 1. 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 2. Cortical based hyperdensity in the region of this infarct likely representing calcifications in th e setting of cortical laminar necrosis. 3. No definite acute intracranial process. If there is continued concern, an MRI may be obtained for further evaluation. RADIATION DOSE DELIVERED: 787.47mGy.cm Total DLP DATA REPOSITORY: All CT scans at this facility are submitted to the National Radiology Data Registry (NRDR) Dose Index Registry (DIR) with the [employer] (ACR). RADIATION OPTIMIZATION: All CT scans at this facility use at least one of these dose optimization te chniques: automated exposure control; mA and/or kV adjustment per patient size (includes targeted exa ms where dose is matched to clinical indication); or iterative reconstruction.
[2019-08-14 16:37] LABS: Platelet Count 33 x1000/uL (130-400)
[2019-08-14 16:39] LABS: Anisocytosis 1+; Basophilic Stippling Present; Diff Comment PLT Morph Reviewed; Macrocytosis 2+; Poikilocytes 1+; Polychromasia Present
[2019-08-14 16:40] LABS: ALT 28 U/L (16-63); AST 16 U/L (15-37); Albumin 2.8 g/dL (3.4-5.0); Alkaline Phosphatase 62 U/L (46-116); Anion Gap 5.2 mmol/L (3-11); BUN 12 mg/dL (7-18); Bilirubin, Total 0.4 mg/dL (0.2-1.0); CO2 27.8 mmol/L (21.0-32.0); CREATININE 0.76 mg/dL (0.70-1.30); Calcium 8.1 mg/dL (8.5-10.1); Chloride 107 mmol/L (98-107); Glucose 99 mg/dL (74-106); Magnesium 2.2 mg/dL (1.8-2.4); Potassium 3.7 mmol/L (3.5-5.1); Sodium 140 mmol/L (136-145); Total Protein 5.6 g/dL (6.4-8.2)
[2019-08-14 16:41] LABS: Troponin I < 0.05 ng/mL (<0.06)
--- NOTE | 2019-08-14 16:41 | DI.RAD_ITS ---
EXAM: XR CHEST 2V PA LATERAL CLINICAL HISTORY: weakness, r/o acute disease TECHNIQUE: 2D digital imaging was performed. COMPARISON: CR CHEST 2 VIEWS PA,LAT from 03/19/2015 FINDINGS: MEDIASTINUM: Normal. HEART: Normal. PULMONARY VASCULATURE: Normal. LUNGS: Since the prior examination, there has been increasing opacity involving nearly the entirety o f the left hemithorax. In addition, scattered opacities are seen in the right lung. PLEURAL SPACE: No pleural effusion or pneumothorax. BONE:There is an old mid thoracic compression fracture. OTHER FINDINGS:There is a right-sided Rpinfs-Q-Abax catheter. The tip of the catheter is in good pos ition at the junction of the superior vena cava and right atrium. IMPRESSION: 1. Near complete opacification of the left medial hemithorax. This may represent pneumonia, mass, pl eural effusion or some combination. CT scan may be considered for further evaluation. 2. Airspace opacities in the right lung. This may represent multifocal pneumonia. Pulmonary nodules cannot be excluded. DATA REPOSITORY: RADIATION DOSE DELIVERED:
--- NOTE | 2019-08-14 16:46 | DI.VRAD_ITS ---
PROCEDURE INFORMATION: Exam: XR Chest, 2 Views Exam date and time: 08/14/2019 4:38 PM Age: 63 years old Clinical indication: Other: Weakness, R/O acute disease TECHNIQUE: Imaging protocol: XR of the chest Views: 2 views. COMPARISON: No relevant prior studies available. FINDINGS: Tubes, catheters and devices: Right-sided medication port, tip projecting over the cavoatrial junction. Lungs: Prominent opacification of nearly the entirety of the medial left hemithorax including the left lung apex, unknown whether this represents pneumonia, mass, pleural effusion, or combination. Scattered solid airspace opacities throughout the right lung, possibly nodules. Heart/Mediastinum: Cardiac and mediastinal silhouettes are unremarkable. Bones/joints: Chronic compression fracture of a midthoracic vertebral body. Remaining bones appear intact IMPRESSION: Prominent opacification of nearly the entirety of the medial left hemithorax including the left lung apex, unknown whether this represents pneumonia, mass, pleural effusion, or combination. Scattered solid airspace opacities throughout the right lung, possibly nodules. Recommend correlation with chest CT. Dictated and Authenticated by: Yovany Bingham MD. Ordering:OFE Garcia MD
--- NOTE | 2019-08-14 16:49 | DI.VRAD_ITS ---
PROCEDURE INFORMATION: Exam: CT Head Without Contrast Exam date and time: 08/14/2019 4:33 PM Age: 63 years old Clinical indication: Other: Weak and wobbly TECHNIQUE: Imaging protocol: Computed tomography of the head without contrast. Radiation optimization: All CT scans at this facility use at least one of these dose optimization techniques: automated exposure control; mA and/or kV adjustment per patient size (includes targeted exams where dose is matched to clinical indication); or iterative reconstruction. COMPARISON: No relevant prior studies available. FINDINGS: Brain: Small chronic infarct of the superior right frontal lobe. Cortical based hyperdensity within the region of this infarct most likely represents calcifications in the setting of cortical laminar necrosis. No definite evidence of acute intracranial hemorrhage. Small chronic right basal ganglia lacunar infarcts. No evidence of mass effect or midline shift. [place]-white matter differentiation is preserved. Ventricles: No ventriculomegaly. Bones/joints: No acute osseus lesion or fracture. Sinuses: Unremarkable as visualized. Mastoid air cells: Unremarkable. Soft tissues: Calcification versus small hyperdense foreign body within the anterior left frontal scalp. IMPRESSION: 1. Small chronic infarct of the superior right frontal lobe. Cortical based hyperdensity within the region of this infarct most likely represents calcifications in the setting of cortical laminar necrosis. If clinically indicated, this can be further assessed with MRI brain. 2. Other chronic findings, as above. Dictated and Authenticated by: Yovany Bingham MD. Ordering:OFE Garcia MD
[2019-08-14] MEDS: Omnipaque 350 MG/ML 100 ML BTL IJ (17:20)
[2019-08-14] MEDS: Normal Saline - Diluent 50 ML VIAL IV (17:20)
[2019-08-14 17:24] LABS: Bilirubin Negative (Negative); Blood Negative (Negative); Clarity Clear (Clear); Glucose Negative (Negative); Ketones Negative (Negative); Leukocyte Esterase Negative (Negative); Nitrite Negative (Negative); Specific Gravity <= 1.005 (1.005-1.025); Urobilinogen 0.2 EU/dL (Up TO 0.2); pH 5.5 (5-8)
--- NOTE | 2019-08-14 17:40 | DI.CT_ITS ---
EXAM: CT CHEST PE CTA CLINICAL HISTORY: weakness, hypoxia, r/o pneumonia vs pe. TECHNIQUE: Imaging Protocol: Axial CT angiography was performed with multi-slice acquisition and mu lti-planar and/or 3D reconstructions. CONTRAST MATERIAL: Intravenous: Omnipaque 350 Contrast volume:100 mL COMPARISON: CR CHEST 2 VIEWS PA,LAT from 06/02/2014 CR,XR XR CHEST 2V PA LATERAL from 08/14/2019 FINDINGS: Pulmonary Arteries: No evidence of filling defect to suggest pulmonary emboli. Tracheobronchial tree: Patent where visualized. Mediastinum and Sue: No dominant adenopathy or fluid collection. Pulmonary parenchyma: Multifocal bilateral areas of consolidation and ground-glass opacities are pres ent. The most prominent area of consolidation is seen in the left lung apex with air bronchograms. There is loss of volume of the left hemithorax. Emphysematous changes are present in the lungs. Pleura: No effusion or pneumothorax. Heart: The heart is not dilated. Mild coronary artery calcification. No significant pleural effusion . Aorta: There is mild ectasia of the ascending thoracic aorta. No evidence of thoracic aortic dissect ion. Atherosclerosis. Upper abdomen: Cholelithiasis. Bones: Innumerable lytic lesions in the bones suspicious for osseous metastatic disease. Compression fracture deformity of T7 which was present on the chest x-ray from 06/02/2014. Tubes, Catheters, and Lines: The patient has an Yzyqmi-K-Kbsb type catheter. IMPRESSION: 1. No evidence of pulmonary embolism, thoracic aortic dissection or aneurysm. 2. Multifocal bilateral consolidative and ground-glass opacities suspicious for multifocal pneumonia. 3. Numerous lytic lesions in the bones suspicious for osseous metastatic disease. RADIATION DOSE DELIVERED: 580.68mGy.cm Total DLP DATA REPOSITORY: All CT scans at this facility are submitted to the National Radiology Data Registry (NRDR) Dose Index Registry (DIR) with the [employer] (ACR). RADIATION OPTIMIZATION: All CT scans at this facility use at least one of these dose optimization te chniques: automated exposure control; mA and/or kV adjustment per patient size (includes targeted exa ms where dose is matched to clinical indication); or iterative reconstruction.
--- NOTE | 2019-08-14 17:50 | DI.VRAD_ITS ---
PROCEDURE INFORMATION: Exam: CT Angiography Chest With Contrast Exam date and time: 08/14/2019 5:06 PM Age: 63 years old Clinical indication: Shortness of breath; Patient HX: Weakness, hypoxia R/O pneumonia vs pe; Additional info: Patient unable to raise arms for exam do to pain and unable to breathe with arms above head. TECHNIQUE: Imaging protocol: Computed tomographic angiography of the chest with intravenous contrast. 3D rendering: MIP and/or 3D reconstructed images were created by the technologist. Radiation optimization: All CT scans at this facility use at least one of these dose optimization techniques: automated exposure control; mA and/or kV adjustment per patient size (includes targeted exams where dose is matched to clinical indication); or iterative reconstruction. Contrast material: OMNIPAQUE 350; Contrast volume: 100 ml; Contrast route: IV; COMPARISON: CR XR CHEST 2V PA LATERAL 08/14/2019 4:38 PM FINDINGS: Tubes, catheters and devices: Right-sided medication port. Pulmonary arteries: No filling defects within the main, lobar, segmental, and subsegmental pulmonary arterial branches. Aorta: Ectasia of the ascending thoracic aorta measuring up to 3.9 cm in diameter. No evidence of dissection. Mild atherosclerotic calcifications of the aorta. Lungs: Scattered bilateral consolidative and ground-glass opacities, most prominent region of consolidation in the left lung apex with air bronchograms. Pleural space: No pleural effusion or pneumothorax. Heart: Mild calcifications of the coronary arteries. Lymph nodes: Scattered prominent mediastinal lymph nodes. Bones/joints: Numerous lytic lesions throughout the visualized bones, most pronounced in the spine, concerning for osseous metastatic disease. Moderate pathologic compression fracture of T7. Soft tissues: Unremarkable. IMPRESSION: 1. Scattered bilateral consolidative and ground-glass opacities, most prominent region of consolidation in the left lung apex with air bronchograms. Findings most concerning for multifocal pneumonia. 2. Numerous lytic lesions throughout the visualized bones, most pronounced in the spine, concerning for osseous metastatic disease. Moderate pathologic compression fracture of T7. 3. No CTA evidence of pulmonary embolism. 4. Other findings, as above. Dictated and Authenticated by: Yovany Bingham MD. Ordering:OFE Garcia MD
[2019-08-14] MEDS: levoFLOXacin 500 MG, levoFLOXacin 250 MG 750 MG PO (18:44)
[2019-08-14] MEDS: Heparin 500 UNITS/5 ML SYRINGE (18:46)
[2019-08-14 18:58] VITALS: PULSE 68; TEMP 36.7
== END 2019-08-14 18:54 | disposition home or self-care (01) ==
PROVIDERS: Emergency Provider Physician Assistant; PCP Neuromusculoskeletal Medicine & OMM
DX: J18.8 Other pneumonia, unspecified organism (principal); R53.1 Weakness; R91.8 Other nonspecific abnormal finding of lung field; Z95.828 Presence of other vascular implants and grafts; C90.00 Multiple myeloma not having achieved remission; Z79.899 Other long term (current) drug therapy
CPT/HCPCS: 36591; 71275; 80053; 93005; 96360; 96361; 99285; 70450; 71046; 81003; 83735; 84484; 85025; 93010; J3490

== ENCOUNTER 2019-08-21 02:24 | Outpatient (CLI) | payer MEDICAID, SELFPAY ==
--- NOTE | 2019-08-21 | DI.US_ITS ---
EXAM: US LOWER EXTREMITY VENOUS RT CLINICAL HISTORY: MULTIPLE MYELOMA,REMISSION STATUS,C90.00,RT LEG EDEMA, R60.0. TECHNIQUE: Right lower extremity venous ultrasound performed using grayscale, color-flow, and spectr al Doppler analysis. COMPARISON: No exams were available for comparison FINDINGS: The right common femoral, femoral and popliteal veins demonstrate normal compressibility, augmentatio n, and color Doppler. The posterior tibial veins are patent. No saphenous vein thrombosis or other s uperficial venous thrombosis is seen. No hematoma or Coelho's cyst is seen. IMPRESSION: Negative right lower extremity ultrasound. No evidence of DVT. DATA REPOSITORY:
== END 2019-08-21 02:44 ==
PROVIDERS: PCP Neuromusculoskeletal Medicine & OMM; Visit Provider Radiology Radiation Oncology
DX: C90.01 Multiple myeloma in remission (principal); R60.0 Localized edema
CPT/HCPCS: 93971

== ENCOUNTER 2019-08-21 02:46 | Outpatient (RCR) | payer MEDICAID, SELFPAY ==
[2019-08-14] MEDS: Normal Saline Flush 10 ML SYR IVP (10:05)
[2019-08-14 10:30] LABS: Abs Immature Grans 0.01 k/cumm (0.0-0.09); Absolute Eosinophil Count 0.02 k/cumm (0.0-0.7); Absolute Lymphocyte Count 0.72 k/cumm (1.2-3.4); Absolute Monocyte Count 0.45 k/cumm (0.11-0.7); Absolute Neutrophil Count 5.11 k/cumm (1.2-6.7); Eosinophils % 0.3; HCT 34.6 % (40.0-50.0); HGB 11.9 g/dL (13.5-17.5); Immature Grans % 0.2 %; Lymphocytes % 11.4; Mean Corp. HGB Concentration 34.4 g/dL (32.0-36.0); Mean Corpuscular Hemoglobin 37.4 pg (27.0-33.0); Mean Corpuscular Volume 108.8 fL (80-95); Mean Platelet Volume 11.4 fL (8.0-11.0); Monocytes % 7.1; RBC 3.18 m/cumm (4.50-6.00); RBC Distribution Width 14.5 % (11.8-14.1); White Blood Cell Count 6.31 k/cumm (4.4-10.8)
[2019-08-14 10:47] LABS: ALT 31 U/L (16-63); AST 18 U/L (15-37); Albumin 3.2 g/dL (3.4-5.0); Alkaline Phosphatase 71 U/L (46-116); BUN 14 mg/dL (7-18); Bilirubin, Total 0.5 mg/dL (0.2-1.0); CREATININE 0.92 mg/dL (0.70-1.30); Calcium 8.4 mg/dL (8.5-10.1); Chloride 105 mmol/L (98-107); Glucose 131 mg/dL (74-106); Platelet Count 44 x1000/uL (130-400); Potassium 3.7 mmol/L (3.5-5.1); Sodium 140 mmol/L (136-145); Total Protein 6.3 g/dL (6.4-8.2)
[2019-08-14 10:48] LABS: Diff Comment RBC Morph Reviewed; Macrocytosis 2+; Polychromasia Present
[2019-08-21 10:14] LABS: Abs Immature Grans 0.01 k/cumm (0.0-0.09); Absolute Eosinophil Count 0.02 k/cumm (0.0-0.7); Absolute Lymphocyte Count 0.57 k/cumm (1.2-3.4); Absolute Monocyte Count 0.43 k/cumm (0.11-0.7); Absolute Neutrophil Count 4.06 k/cumm (1.2-6.7); Eosinophils % 0.4; HCT 30.4 % (40.0-50.0); HGB 10.5 g/dL (13.5-17.5); Immature Grans % 0.2 %; Lymphocytes % 11.2; Mean Corp. HGB Concentration 34.5 g/dL (32.0-36.0); Mean Corpuscular Hemoglobin 37.5 pg (27.0-33.0); Mean Corpuscular Volume 108.6 fL (80-95); Mean Platelet Volume 9.7 fL (8.0-11.0); Monocytes % 8.4; Neutrophils % 79.8; RBC Distribution Width 14.2 % (11.8-14.1); White Blood Cell Count 5.09 k/cumm (4.4-10.8)
[2019-08-21 10:27] LABS: ALT 19 U/L (16-63); AST 16 U/L (15-37); Albumin 3.1 g/dL (3.4-5.0); Alkaline Phosphatase 75 U/L (46-116); Anion Gap 8.8 mmol/L (3-11); BUN 7 mg/dL (7-18); Bilirubin, Total 0.5 mg/dL (0.2-1.0); CO2 25.2 mmol/L (21.0-32.0); CREATININE 1.01 mg/dL (0.70-1.30); Chloride 104 mmol/L (98-107); Glucose 135 mg/dL (74-106); Potassium 3.6 mmol/L (3.5-5.1); Sodium 138 mmol/L (136-145); Total Protein 6.4 g/dL (6.4-8.2)
[2019-08-21 10:29] LABS: Platelet Count 64 x1000/uL (130-400)
[2019-08-21 10:30] LABS: Anisocytosis 1+; Diff Comment RBC Morph Reviewed; Polychromasia Present
[2019-08-21 10:31] LABS: Poikilocytes 2+
[2019-08-21] MEDS: Normal Saline Flush 10 ML SYR IVP (10:51)
== END 2019-09-03 23:59 | disposition home or self-care (01) ==
LOC: INF 02:46
PROVIDERS: Nurse Practitioner Family; PCP Neuromusculoskeletal Medicine & OMM; Visit Provider Internal Medicine Hematology & Oncology
DX: C90.00 Multiple myeloma not having achieved remission (principal); Z45.2 Encounter for adjustment and management of vascular access device
CPT/HCPCS: 36591; 80053; 82784; 83883; 84165; 85025

== ENCOUNTER 2019-10-03 08:00 | Outpatient (RCR) | payer MEDICAID, SELFPAY ==
[2019-09-04] MEDS: Normal Saline Flush 10 ML SYR IVP (09:35)
[2019-09-04 09:57] LABS: Absolute Eosinophil Count 0.03 k/cumm (0.0-0.7); Absolute Lymphocyte Count 0.54 k/cumm (1.2-3.4); Absolute Monocyte Count 0.34 k/cumm (0.11-0.7); Absolute Neutrophil Count 2.54 k/cumm (1.2-6.7); Eosinophils % 0.9; HCT 33.1 % (40.0-50.0); HGB 11.1 g/dL (13.5-17.5); Lymphocytes % 15.7; Mean Corp. HGB Concentration 33.5 g/dL (32.0-36.0); Mean Corpuscular Hemoglobin 36.9 pg (27.0-33.0); Monocytes % 9.9; Neutrophils % 73.5; RBC 3.01 m/cumm (4.50-6.00); RBC Distribution Width 14.6 % (11.8-14.1); White Blood Cell Count 3.45 k/cumm (4.4-10.8)
[2019-09-04 10:16] LABS: ALT 22 U/L (16-63); AST 17 U/L (15-37); Albumin 3.2 g/dL (3.4-5.0); Alkaline Phosphatase 67 U/L (46-116); Anion Gap 9.5 mmol/L (3-11); BUN 10 mg/dL (7-18); Bilirubin, Total 0.4 mg/dL (0.2-1.0); CO2 24.5 mmol/L (21.0-32.0); CREATININE 0.88 mg/dL (0.70-1.30); Calcium 8.4 mg/dL (8.5-10.1); Chloride 106 mmol/L (98-107); Glucose 150 mg/dL (74-106); Potassium 3.7 mmol/L (3.5-5.1); Sodium 140 mmol/L (136-145); Total Protein 6.4 g/dL (6.4-8.2)
[2019-09-04 10:34] LABS: Platelet Count 80 x1000/uL (130-400)
[2019-09-04 10:35] LABS: Diff Comment Diff Reviewed; RBC Morphology Normal
[2019-09-26 10:15] LABS: Abs Immature Grans 0.01 k/cumm (0.0-0.09); Absolute Eosinophil Count 0.02 k/cumm (0.0-0.7); Absolute Lymphocyte Count 0.28 k/cumm (1.2-3.4); Absolute Monocyte Count 0.13 k/cumm (0.11-0.7); Absolute Neutrophil Count 5.89 k/cumm (1.2-6.7); Eosinophils % 0.3; HCT 39.6 % (40.0-50.0); HGB 13.2 g/dL (13.5-17.5); Immature Grans % 0.2 %; Lymphocytes % 4.4; Mean Corp. HGB Concentration 33.3 g/dL (32.0-36.0); Mean Corpuscular Volume 110.9 fL (80-95); Mean Platelet Volume 10.9 fL (8.0-11.0); Monocytes % 2.1; RBC 3.57 m/cumm (4.50-6.00); RBC Distribution Width 14.5 % (11.8-14.1); White Blood Cell Count 6.33 k/cumm (4.4-10.8)
[2019-09-26 10:31] LABS: Platelet Count 61 x1000/uL (130-400)
[2019-09-26 10:32] LABS: Diff Comment PLT Morph Reviewed; Macrocytosis 3+
[2019-09-26 10:38] LABS: ALT 26 U/L (16-63); AST 15 U/L (15-37); Albumin 3.4 g/dL (3.4-5.0); Alkaline Phosphatase 80 U/L (46-116); Anion Gap 10.4 mmol/L (3-11); BUN 14 mg/dL (7-18); Bilirubin, Total 0.4 mg/dL (0.2-1.0); CO2 24.6 mmol/L (21.0-32.0); CREATININE 0.87 mg/dL (0.70-1.30); Calcium 8.1 mg/dL (8.5-10.1); Chloride 105 mmol/L (98-107); Glucose 172 mg/dL (74-106); Sodium 140 mmol/L (136-145); Total Protein 6.5 g/dL (6.4-8.2)
[2019-09-26] MEDS: Heparin 500 UNITS/5 ML SYRINGE IV (11:02)
[2019-09-26] MEDS: Normal Saline Flush 10 ML SYR IVP (11:02)
[2019-10-03] MEDS: Normal Saline Flush 10 ML SYR IVP (08:15)
[2019-10-03] MEDS: Heparin 500 UNITS/5 ML SYRINGE IV (08:20)
[2019-10-03 08:25] LABS: Abs Immature Grans 0.02 10^3/uL (0.0-0.06); Absolute Eosinophil Count 0.05 10^3/uL (0.0-0.7); Absolute Lymphocyte Count 0.39 10^3/uL (1.2-3.4); Absolute Monocyte Count 0.25 10^3/uL (0.1-0.8); Absolute Neutrophil Count 3.92 10^3/uL (1.2-6.7); Eosinophils % 1.1; HCT 36.7 % (40.0-50.0); HGB 12.4 g/dL (13.5-17.5); Immature Grans % 0.4; Lymphocytes % 8.4; MCH 37.3 pg (27.0-33.0); MCHC 33.8 % (32.0-36.0); MCV 110.5 fL (80-95); MPV 9.1 fL (8.0-11.0); Monocytes % 5.4; Neutrophils % 84.7; RBC 3.32 10^6/uL (4.36-5.78); RDW 13.6 % (11.8-14.1); WBC 4.63 10^3/uL (4.4-10.8)
[2019-10-03 09:08] LABS: Diff Comment Diff Reviewed; Macrocytosis 2+; Platelet Count 36 10^3/uL (130-400); Poikilocytes 1+
== END 2019-10-04 23:59 | disposition home or self-care (01) ==
LOC: INF 08:00
PROVIDERS: PCP Neuromusculoskeletal Medicine & OMM; Visit Provider Internal Medicine Hematology & Oncology
DX: C90.00 Multiple myeloma not having achieved remission (principal); Z45.2 Encounter for adjustment and management of vascular access device
CPT/HCPCS: 36591; 80053; 85025

== ENCOUNTER 2019-10-08 08:24 | Emergency (ER) | payer MEDICAID, SELFPAY ==
[2019-10-08] VITALS (11 sets, daily range): BP systolic 115–145; BP diastolic 66–75; PULSE 88–115; RESP 4–27; TEMP 36.7–36.9; O2SAT 86–95
--- NOTE | 2019-10-08 08:15 | RT.EKG_ITS ---
APPROVED REPORT Exam: Resting ECG Patient Location: E HR:99 bpm ECG Measurements Heart Rate 99 AXIS NC 168 P 36 QRSd 93 QRS 46 QT 330 T 34 QTc 423 <Conclusion> Sinus rhythm...normal P axis, V-rate 60- 99 no significant changes from prior
--- NOTE | 2019-10-08 08:51 | W.ED.GENAD ---
Discharge Plan Disposition Patient Disposition: HOME Condition: Stable Discharge Details Chief Complaint: SOB Clinical Impression: Shortness of breath Primary Care Provider: Cassius Aranda ED Provider: Fly De León Home Meds and New Rx's Prescriptions: New prednisone 20 mg tablet 60 mg PO DAILY 4 Days Qty: 12 RF: 0 Continued tamsulosin 0.4 mg capsule 0.4 mg PO DAILY RF: 0 montelukast 10 mg tablet 10 mg PO 4-6XD RF: 0 lansoprazole 30 mg capsule,delayed release(DR/EC) 30 mg PO DAILY RF: 0 ipratropium-albuterol 0.5 mg-3 mg(2.5 mg base)/3 mL solution for nebulization INHALATION RF: 0 morphine 15 mg Tablet Extended Release 15 mg PO BID RF: 0 montelukast 10 mg tablet 10 mg RF: 0 Discharge Instructions Instructions: Dyspnea (ED) Additional Instructions: your lab work and cat scan did now show any new changes, I suspect your symptoms are likely from underlying asthma or copd follow up with your primary care provider or oncologist within a week if you have worsening symptoms, feel more ill or more short of breath return to the emergency department Medical Decision Making 64 yo male with hx of multiple myeloma on weekly infusions per pt of chemotherapy, last was this past , gerd, hld, who uses a nebulizer intermittently though denies diagnosis of copd or asthma, former smoker who quit 20 years ago was in the infusion room having labs drawn when he suddenly felt short of breath. HE states he always feels mild short of breath but this was worse. Denies fevers, cough, travel, sick contacts, vomit, chest pain or pressure. The infusion room staff brought him down in a stretcher and arrives hd stable speaking in full sentences and states he feels much better. HE has bilateral apical wheezing otherwise clear lungs. Could be component of undiagnosed copd/asthma, will tx with neb and steroids and reassess. No chest pain or pressure, heart score is 3, will obtain troponin. Given wells score is moderate will obtain PE CTA to eval for PE and pna though no fever or cough so unlikely pna. Will test for covid19 as well though feel this is less likely given lack of fever, cough or known sick contacts. pt feels much better and labs show no acute changes from prior and ct shows no new changes, no PE and given lack of infectious symptoms do not feel abx indicated. He is comfortable with outpatient management and f/u and return precautions given, suspect symptoms primarily due to underlying reactive airway disease Differential Diagnosis Differential Diagnosis: copd/asthma, pe, pna Medical Records Medical records reviewed: Yes I reviewed the patient's medical records. Imaging Data Radiologic Study: Attestation: I personally reviewed and interpreted this imaging study as follows: Imaging: CT Scan Radiologist's impression: IMPRESSION: Severe multiple myeloma, stable. Severe multi focal pulmonary infiltrates, stable Lab Data Lab results reviewed: Yes I reviewed the patient's lab results. ECG Data Attestation: I personally reviewed and interpreted this ECG (s) as follows: Prior ECG tracings: available for review Interpretation: sinus rhythm, rate of [address] t wave ischemic findings compared to old ekg no significnat changes HPI General Date/Time Provider Initiated Documentation: 10/08/19 08:24. Limitations to Documentation: no limitations. Information obtained by: patient. History of Present Illness 64 year old M presents to the emergency department with the chief complaint of shortness of breath, described as moderate, and it has been other (improving). No relieving factors improve symptom(s), No exacerbating factors reported . Patient did receive the following treatments prior to arrival, none Related Data Home Medications Medication Instructions Recorded Confirmed ipratropium-albuterol ml INHALATION 08/14/19 08/14/19 lansoprazole 30 mg PO DAILY 08/14/19 10/08/19 montelukast 10 mg 08/14/19 montelukast 10 mg PO 4-6XD 08/14/19 08/14/19 morphine 15 mg PO BID 08/14/19 10/08/19 tamsulosin 0.4 mg PO DAILY 08/14/19 10/08/19 prednisone 60 mg PO DAILY 4 Days #12 tab 10/08/19 Previous Rx's Medication Instructions Recorded prednisone 60 mg PO DAILY 4 Days #12 tab 10/08/19 Allergies Allergy/AdvReac Type Severity Reaction Status Date / Time amoxicillin Allergy Unverified 10/08/19 08:42 lenalidomide Allergy Unverified 10/08/19 08:42 General Stated Complaint: SOB TISHA: 3 Review of Systems All systems reviewed & are unremarkable except as noted in HPI and below Constitutional Constitutional: Denies chills, Denies fever(s) and Denies weakness Cardiovascular Cardiovascular: Denies chest pain Respiratory Respiratory: Denies cough Gastrointestinal Gastrointestinal: Denies abdominal pain, Denies nausea and Denies vomiting Musculoskeletal Musculoskeletal: Denies joint swelling Neurologic Neurologic: Denies weakness Psychiatric Psychiatric: Denies depression [facility] Medical History (Updated 10/08/19 @ 10:35 by Fly De León MD) Hx of hyperlipidemia (Acute) Multiple myeloma (Acute) Social History Smoking/Tobacco Use Status: Former Tobacco Use Alcohol Intake: current Alcohol Intake frequency: a few times a week Substance use type: does not use Do you feel safe at home: Yes Do you feel safe in your relationship?: Yes Exam Const General: no acute distress Orientation: alert HENMT Head: normal to inspection Ears: external ears normal General nose exam: external nose normal Mouth: moist mucous membranes Eyes General: appearance normal, both eyes and all related structures Neck Neck: normal visual inspection Resp Effort & Inspection: normal respiratory effort and audible wheezes Cardio Rate: regular rate Skin General skin exam: no rashes or lesions noted Neuro General: patient alert and patient oriented x3 Extrem General: normal to inspection Psych Mental Status: mental status grossly normal Course Vital Signs Vital signs: Vital Signs Temperature 36.7 C 10/08/19 08:39 Pulse 108 H 10/08/19 08:39 Respiratory Rate 21 10/08/19 08:39 Blood Pressure 145/75 H 10/08/19 08:39 Pulse Oximetry 95 10/08/19 08:39 Temperature 36.7 C 10/08/19 08:39 Temperature Source Tympanic 10/08/19 08:39 Pulse 108 H 10/08/19 08:39 Respiratory Rate 21 10/08/19 08:39 Respiratory Effort Non-Labored 10/08/19 08:41 Blood Pressure 145/75 H 10/08/19 08:39 Blood Pressure Position Sitting 10/08/19 08:39 Pulse Oximetry 95 10/08/19 08:39 Oxygen Delivery Method Nasal Cannula 10/08/19 08:39 Oxygen Flow Rate 3 10/08/19 08:39 Lab/Test Results Lab/Test Results: Laboratory Tests Range/Units 10/08/19 10/08/19 08:25 08:25 WBC Cancelled RBC Cancelled Hgb Cancelled Hct Cancelled MCV Cancelled MCH Cancelled MCHC Cancelled RDW Cancelled Plt Count Cancelled MPV Cancelled Immature Gran % Cancelled Neutrophils % Cancelled Band Neutrophils % Cancelled Lymphocytes % Cancelled Atypical Lymphs % Cancelled Monocytes % Cancelled Eosinophils % Cancelled Basophils % Cancelled Metamyelocytes % Cancelled Myelocytes % Cancelled Promyelocytes % Cancelled Other Cells % Cancelled Nucleated RBC % Cancelled Absolute Neutrophils Cancelled Absolute Lymphocytes Cancelled Absolute Monocytes Cancelled Absolute Eosinophils Cancelled Absolute Basophils Cancelled RBC Morphology Cancelled Polychromasia Cancelled Hypochromasia Cancelled Poikilocytosis Cancelled Basophilic Stippling Cancelled Anisocytosis Cancelled Microcytosis Cancelled Macrocytosis Cancelled Spherocytes Cancelled Tear Drop Cells Cancelled Ovalocytes Cancelled Stomatocytes Cancelled [place] Bodies Cancelled Pascual Cells/Echinocytes Cancelled Acanthocytes (Spur) Cancelled Schistocytes Cancelled Sodium Cancelled Potassium Cancelled Chloride Cancelled Carbon Dioxide Cancelled Anion Gap Cancelled BUN Cancelled Creatinine Cancelled Estimated GFR/1.73 m2 Cancelled Glucose Cancelled Calcium Cancelled Total Bilirubin Cancelled AST Cancelled ALT Cancelled Alkaline Phosphatase Cancelled Total Protein Cancelled Albumin Cancelled
[2019-10-08] MEDS: Albuterol/Ipratropium 3 ML UPD VIAL UPD (08:56)
[2019-10-08 09:00] LABS: BE (Venous) -2.3 mmol/L (-3-3); HCO3 (Venous) 23 mmol/L (22-28); O2 Sat (Venous) 75 % (70-80); TCO2 (Venous) 21 mmol/L (22-29); pCO2 (Venous) 41 mm/Hg (34-47); pH (Venous) 7.36 (7.35-7.45); pO2 (Venous) 42 mm/Hg (28-44)
[2019-10-08 09:00] LABS: Abs Immature Grans 0.03 10^3/uL (0.0-0.06); Absolute Basophil Count 0.01 10^3/uL (0.0-0.2); Absolute Eosinophil Count 0.04 10^3/uL (0.0-0.7); Absolute Lymphocyte Count 0.39 10^3/uL (1.2-3.4); Absolute Monocyte Count 0.25 10^3/uL (0.1-0.8); Basophils % 0.2; Eosinophils % 0.7; HCT 37.7 % (40.0-50.0); HGB 12.7 g/dL (13.5-17.5); Immature Grans % 0.5; Lymphocytes % 6.7; MCH 36.8 pg (27.0-33.0); MCHC 33.7 % (32.0-36.0); MCV 109.3 fL (80-95); Monocytes % 4.3; Neutrophils % 87.6; RBC 3.45 10^6/uL (4.36-5.78); RDW 13.4 % (11.8-14.1); RDW-SD 53.8 fL; WBC 5.82 10^3/uL (4.4-10.8)
[2019-10-08] MEDS: methylPREDNISolone SUCC 125 MG VIAL IVP (09:10)
[2019-10-08 09:16] LABS: Magnesium 2.2 mg/dL (1.8-2.4); NT-proBNP 87 pg/mL (<300); Platelet Count 21 10^3/uL (130-400)
[2019-10-08 09:17] LABS: Diff Comment PLT Morph Reviewed; Macrocytosis 3+; Polychromasia Present; Troponin I < 0.05 ng/mL (<0.06)
[2019-10-08 09:19] LABS: PTT Activated 22.3 sec (21.0-31.4); Prothrombin Time 10.4 sec (9.3-11.0)
[2019-10-08] MEDS: Normal Saline - Diluent 50 ML VIAL IV (09:31)
[2019-10-08] MEDS: Omnipaque 350 MG/ML 100 ML BTL 79 ML IJ (09:32)
[2019-10-08] MEDS: Normal Saline Flush 10 ML SYR IVP (09:33)
--- NOTE | 2019-10-08 09:46 | DI.CT_ITS ---
EXAM: CT CHEST PE CTA CLINICAL HISTORY: shortness of breath, tachycardia, multiple myeloma TECHNIQUE: COMPARISON: CT CT CHEST PE CTA from 08/14/2019 FINDINGS: CT angiography of the chest was performed with bolus infusion of 79 cc of Omnipaque 350. Patient has a history of myeloma, note is again made of innumerable bony lesions with severe loss integrity of n umerous vertebral bodies and the posterior elements multiple vertebrae, little interval change from p rior CT of August 13. Note is also made of diffuse bilateral areas of pulmonary consolidation, scarring, and/or atelectasis , also essentially unchanged from prior study. No new intrapulmonary process. No pleural effusion. No evidence of pulmonary embolic disease. Thoracic aorta measures about 41 millimeters in the ascen ding aortic region consistent with mild ectasia. There is an indwelling right subclavian catheter the tip of which lies in the right atrium. Tracheobronchial tree is grossly intact. Images obtained through the upper abdomen show unremarkable appearance of visualized portions of the liver and spleen. IMPRESSION: Severe multiple myeloma, stable. Severe multi focal pulmonary infiltrates, stable. No evidence of pulmonary embolic disease.
[2019-10-10 05:35] LABS: COVID-19 RT-PCR Result NEGATIVE (Negative)
--- NOTE | 2019-10-10 11:52 | NUR.NOTE ---
no answer on cell or home phones left message on home phone to call back for test results Nursing Note:
--- NOTE | 2019-10-12 11:31 | NUR.NOTE ---
Nursing Note: Nursing unable to reach patient. Result for COVID was mailed to patient. Nubia Rosario.
== END 2019-10-08 10:48 | disposition home or self-care (01) ==
PROVIDERS: Emergency Provider Emergency Medicine; PCP Neuromusculoskeletal Medicine & OMM
DX: R06.02 Shortness of breath (principal); C90.00 Multiple myeloma not having achieved remission; Z79.899 Other long term (current) drug therapy; Z95.828 Presence of other vascular implants and grafts; Z11.59 Encounter for screening for other viral diseases; Z87.891 Personal history of nicotine dependence
CPT/HCPCS: 36591; 71275; 80053; 82805; 93005; 94640; 96374; 99285; U0003; 83735; 83880; 84484; 85025; 85610; 85730; 93010; J2930; J3490; J7620

== ENCOUNTER 2019-10-30 01:28 | Outpatient (RCR) | payer MEDICAID, SELFPAY ==
[2019-10-08] MEDS: Normal Saline Flush 10 ML SYR IVP (08:37)
[2019-10-08 09:10] LABS: ALT 30 U/L (16-63); AST 18 U/L (15-37); Alkaline Phosphatase 76 U/L (46-116); Anion Gap 10.7 mmol/L (3-11); BUN 17 mg/dL (7-18); Bilirubin, Total 0.3 mg/dL (0.2-1.0); CO2 24.3 mmol/L (21.0-32.0); CREATININE 0.91 mg/dL (0.70-1.30); Calcium 8.2 mg/dL (8.5-10.1); Chloride 105 mmol/L (98-107); Glucose 158 mg/dL (74-106); Potassium 3.4 mmol/L (3.5-5.1); Sodium 140 mmol/L (136-145); Total Protein 5.9 g/dL (6.4-8.2)
[2019-10-10] MEDS: Heparin 500 UNITS/5 ML SYRINGE IVP (07:43)
[2019-10-10] MEDS: Normal Saline Flush 10 ML SYR IVP (07:44)
[2019-10-10 07:51] LABS: Abs Immature Grans 0.03 10^3/uL (0.0-0.06); Absolute Basophil Count 0.01 10^3/uL (0.0-0.2); Absolute Eosinophil Count 0.02 10^3/uL (0.0-0.7); Absolute Lymphocyte Count 0.78 10^3/uL (1.2-3.4); Absolute Monocyte Count 0.39 10^3/uL (0.1-0.8); Absolute Neutrophil Count 5.68 10^3/uL (1.2-6.7); Basophils % 0.1; Eosinophils % 0.3; HCT 35.6 % (40.0-50.0); Immature Grans % 0.4; Lymphocytes % 11.3; MCH 36.7 pg (27.0-33.0); MCHC 33.7 % (32.0-36.0); MCV 108.9 fL (80-95); Monocytes % 5.6; Neutrophils % 82.3; Nucleated RBC 0 %; RBC 3.27 10^6/uL (4.36-5.78); RDW 13.7 % (11.8-14.1); RDW-SD 54.9 fL; WBC 6.91 10^3/uL (4.4-10.8)
[2019-10-10 08:06] LABS: ALT 32 U/L (16-63); AST 17 U/L (15-37); Alkaline Phosphatase 69 U/L (46-116); Anion Gap 8.5 mmol/L (3-11); BUN 15 mg/dL (7-18); Bilirubin, Total 0.3 mg/dL (0.2-1.0); CO2 25.5 mmol/L (21.0-32.0); CREATININE 0.71 mg/dL (0.70-1.30); Calcium 8.1 mg/dL (8.5-10.1); Chloride 108 mmol/L (98-107); Glucose 99 mg/dL (74-106); Potassium 3.8 mmol/L (3.5-5.1); Sodium 142 mmol/L (136-145); Total Protein 6.1 g/dL (6.4-8.2)
[2019-10-10 08:21] LABS: Diff Comment PLT Morph Reviewed; Macrocytosis 3+; Platelet Count 29 10^3/uL (130-400)
[2019-10-10 08:22] LABS: Polychromasia Present
[2019-10-11 11:59] LABS: IgA 55 mg/dL (85-499); IgG 496 mg/dL (610-1,616); IgM 23 mg/dL (35-242); Kappa Free Light Chain 0.88 mg/dL (0.33-1.94); Lambda Free Light Chain <0.44 mg/dL (0.57-2.63)
[2019-10-15 06:39] LABS: Immunotyping, Serum (See Note)
[2019-10-15 08:03] LABS: Albumin 59.6 % (55.8-66.1); Comment (See Note); Total Protein 5.6 g/dL (6.3-8.2)
[2019-10-16 10:45] LABS: Abs Immature Grans 0.03 10^3/uL (0.0-0.06); Absolute Basophil Count 0.01 10^3/uL (0.0-0.2); Absolute Eosinophil Count 0.02 10^3/uL (0.0-0.7); Absolute Lymphocyte Count 0.53 10^3/uL (1.2-3.4); Absolute Neutrophil Count 4.17 10^3/uL (1.2-6.7); Basophils % 0.2; Eosinophils % 0.4; HCT 35.5 % (40.0-50.0); HGB 11.8 g/dL (13.5-17.5); Immature Grans % 0.6; Lymphocytes % 10.5; MCH 36.5 pg (27.0-33.0); MCHC 33.2 % (32.0-36.0); MCV 109.9 fL (80-95); MPV 11.1 fL (8.0-11.0); Monocytes % 5.9; Neutrophils % 82.4; Nucleated RBC 0 %; RBC 3.23 10^6/uL (4.36-5.78); RDW 13.2 % (11.8-14.1); RDW-SD 52.9 fL; WBC 5.06 10^3/uL (4.4-10.8)
[2019-10-16 11:00] LABS: ALT 31 U/L (16-63); AST 14 U/L (15-37); Alkaline Phosphatase 73 U/L (46-116); Anion Gap 6.8 mmol/L (3-11); BUN 11 mg/dL (7-18); Bilirubin, Total 0.3 mg/dL (0.2-1.0); CO2 27.2 mmol/L (21.0-32.0); Calcium 8.4 mg/dL (8.5-10.1); Chloride 105 mmol/L (98-107); Glucose 123 mg/dL (74-106); Potassium 3.8 mmol/L (3.5-5.1); Sodium 139 mmol/L (136-145); Total Protein 5.9 g/dL (6.4-8.2)
[2019-10-16 11:11] LABS: Anisocytosis 1+; Diff Comment RBC Morph Reviewed; Macrocytosis 2+; Platelet Count 53 10^3/uL (130-400)
[2019-10-16] MEDS: Normal Saline Flush 10 ML SYR IVP (11:11)
[2019-10-16 11:12] LABS: Poikilocytes 1+; Polychromasia Present
[2019-10-23] MEDS: Normal Saline Flush 10 ML SYR IVP (08:05)
[2019-10-23] MEDS: Heparin 500 UNITS/5 ML SYRINGE IVP (08:06)
[2019-10-23 08:15] LABS: Abs Immature Grans 0.05 10^3/uL (0.0-0.06); Absolute Basophil Count 0.01 10^3/uL (0.0-0.2); Absolute Eosinophil Count 0.01 10^3/uL (0.0-0.7); Absolute Lymphocyte Count 1.12 10^3/uL (1.2-3.4); Absolute Neutrophil Count 5.45 10^3/uL (1.2-6.7); Basophils % 0.1; Eosinophils % 0.1; HCT 36.1 % (40.0-50.0); HGB 12.3 g/dL (13.5-17.5); Immature Grans % 0.7; Lymphocytes % 15.7; MCH 36.5 pg (27.0-33.0); MCHC 34.1 % (32.0-36.0); MCV 107.1 fL (80-95); MPV 11.5 fL (8.0-11.0); Neutrophils % 76.4; Nucleated RBC 0 %; RBC 3.37 10^6/uL (4.36-5.78); RDW 13.6 % (11.8-14.1); RDW-SD 53.4 fL; WBC 7.14 10^3/uL (4.4-10.8)
[2019-10-23 08:27] LABS: Diff Comment PLT Morph Reviewed; Platelet Count 92 10^3/uL (130-400)
[2019-10-23 08:28] LABS: ALT 34 U/L (16-63); AST 15 U/L (15-37); Albumin 3.2 g/dL (3.4-5.0); Alkaline Phosphatase 70 U/L (46-116); BUN 18 mg/dL (7-18); Basophilic Stippling Present; Bilirubin, Total 0.4 mg/dL (0.2-1.0); CREATININE 0.83 mg/dL (0.70-1.30); Calcium 8.7 mg/dL (8.5-10.1); Chloride 104 mmol/L (98-107); Glucose 124 mg/dL (74-106); Macrocytosis 2+; Polychromasia Present; Potassium 3.6 mmol/L (3.5-5.1); Sodium 141 mmol/L (136-145); Total Protein 6.2 g/dL (6.4-8.2)
[2019-10-24 09:46] LABS: IgA 62 mg/dL (85-499); IgG 511 mg/dL (610-1,616); IgM 29 mg/dL (35-242); Lambda Free Light Chain <0.44 mg/dL (0.57-2.63)
[2019-10-24 09:59] LABS: Albumin 60.4 % (55.8-66.1); Total Protein 5.8 g/dL (6.3-8.2)
[2019-10-30] MEDS: Normal Saline Flush 10 ML SYR IVP (09:30)
[2019-10-30 09:56] LABS: Abs Immature Grans 0.05 10^3/uL (0.0-0.06); Absolute Lymphocyte Count 0.61 10^3/uL (1.2-3.4); Absolute Monocyte Count 0.74 10^3/uL (0.1-0.8); HCT 35.9 % (40.0-50.0); HGB 12.4 g/dL (13.5-17.5); Immature Grans % 0.7; MCH 37.1 pg (27.0-33.0); MCHC 34.5 % (32.0-36.0); MCV 107.5 fL (80-95); MPV 11.3 fL (8.0-11.0); Monocytes % 9.7; Neutrophils % 81.6; Nucleated RBC 0 %; RBC 3.34 10^6/uL (4.36-5.78); RDW 13.3 % (11.8-14.1); RDW-SD 51.9 fL
[2019-10-30 10:07] LABS: ALT 50 U/L (16-63); AST 30 U/L (15-37); Albumin 3.4 g/dL (3.4-5.0); Alkaline Phosphatase 59 U/L (46-116); Anion Gap 11.4 mmol/L (3-11); BUN 16 mg/dL (7-18); Bilirubin, Total 0.3 mg/dL (0.2-1.0); CO2 25.6 mmol/L (21.0-32.0); CREATININE 0.96 mg/dL (0.70-1.30); Calcium 8.7 mg/dL (8.5-10.1); Chloride 104 mmol/L (98-107); Glucose 162 mg/dL (74-106); Potassium 3.8 mmol/L (3.5-5.1); Sodium 141 mmol/L (136-145); Total Protein 6.6 g/dL (6.4-8.2)
[2019-10-30 10:36] LABS: Platelet Count 92 10^3/uL (130-400)
[2019-10-30 10:37] LABS: Diff Comment RBC Morph Reviewed
[2019-10-30 10:38] LABS: Macrocytosis 2+
[2019-10-30 10:39] LABS: Poikilocytes 1+
[2019-10-31 11:04] LABS: IgA 58 mg/dL (85-499); IgG 506 mg/dL (610-1,616); IgM 27 mg/dL (35-242); Lambda Free Light Chain <0.44 mg/dL (0.57-2.63)
[2019-10-31 12:37] LABS: Total Protein 6.1 g/dL (6.3-8.2)
== END 2019-11-04 23:59 | disposition home or self-care (01) ==
LOC: INF 01:28
PROVIDERS: PCP Neuromusculoskeletal Medicine & OMM; Visit Provider Nurse Practitioner Family
DX: C90.00 Multiple myeloma not having achieved remission (principal); Z45.2 Encounter for adjustment and management of vascular access device
CPT/HCPCS: 36591; 80053; 82784; 83883; 84165; 85025; 86320

== ENCOUNTER 2019-11-27 09:00 | Outpatient (RCR) | payer MEDICAID, SELFPAY ==
[2019-11-08] MEDS: Heparin 500 UNITS/5 ML SYRINGE IV (08:24)
[2019-11-08] MEDS: Normal Saline Flush 10 ML SYR IVP (08:24)
[2019-11-08 08:28] LABS: Abs Immature Grans 0.06 10^3/uL (0.0-0.06); Absolute Lymphocyte Count 0.67 10^3/uL (1.2-3.4); Absolute Monocyte Count 0.44 10^3/uL (0.1-0.8); Absolute Neutrophil Count 4.16 10^3/uL (1.2-6.7); HCT 36.7 % (40.0-50.0); HGB 12.9 g/dL (13.5-17.5); Immature Grans % 1.1; Lymphocytes % 12.6; MCH 37.3 pg (27.0-33.0); MCHC 35.1 % (32.0-36.0); MCV 106.1 fL (80-95); MPV 10.8 fL (8.0-11.0); Monocytes % 8.3; Nucleated RBC 0 %; Platelet Count 103 10^3/uL (130-400); RBC 3.46 10^6/uL (4.36-5.78); RDW 13.8 % (11.8-14.1); WBC 5.33 10^3/uL (4.4-10.8)
[2019-11-08 08:34] LABS: Diff Comment RBC Morph Reviewed
[2019-11-08 08:38] LABS: Macrocytosis 2+
[2019-11-08 08:58] LABS: ALT 51 U/L (16-63); AST 18 U/L (15-37); Albumin 3.4 g/dL (3.4-5.0); Alkaline Phosphatase 61 U/L (46-116); Anion Gap 10.5 mmol/L (3-11); BUN 10 mg/dL (7-18); Bilirubin, Total 0.4 mg/dL (0.2-1.0); CO2 25.5 mmol/L (21.0-32.0); CREATININE 0.85 mg/dL (0.70-1.30); Calcium 8.5 mg/dL (8.5-10.1); Chloride 102 mmol/L (98-107); Glucose 141 mg/dL (74-106); Potassium 3.6 mmol/L (3.5-5.1); Sodium 138 mmol/L (136-145); Total Protein 6.4 g/dL (6.4-8.2)
[2019-11-27] MEDS: Normal Saline Flush 10 ML SYR IVP (09:35)
[2019-11-27 09:54] LABS: Abs Immature Grans 0.04 10^3/uL (0.0-0.06); Absolute Lymphocyte Count 0.67 10^3/uL (1.2-3.4); Absolute Monocyte Count 0.73 10^3/uL (0.1-0.8); Absolute Neutrophil Count 5.16 10^3/uL (1.2-6.7); HCT 33.1 % (40.0-50.0); HGB 11.1 g/dL (13.5-17.5); Immature Grans % 0.6; Lymphocytes % 10.2; MCH 36.3 pg (27.0-33.0); MCHC 33.5 % (32.0-36.0); MCV 108.2 fL (80-95); MPV 11.5 fL (8.0-11.0); Monocytes % 11.1; Neutrophils % 78.1; Nucleated RBC 0 %; RBC 3.06 10^6/uL (4.36-5.78); RDW-SD 55.7 fL
[2019-11-27 10:14] LABS: ALT 37 U/L (16-63); AST 17 U/L (15-37); Alkaline Phosphatase 74 U/L (46-116); Anion Gap 7.7 mmol/L (3-11); BUN 14 mg/dL (7-18); Bilirubin, Total 0.4 mg/dL (0.2-1.0); CO2 26.3 mmol/L (21.0-32.0); CREATININE 0.79 mg/dL (0.70-1.30); Calcium 8.4 mg/dL (8.5-10.1); Chloride 107 mmol/L (98-107); Glucose 120 mg/dL (74-106); Potassium 3.8 mmol/L (3.5-5.1); Sodium 141 mmol/L (136-145); Total Protein 6.1 g/dL (6.4-8.2)
[2019-11-27 10:17] LABS: Platelet Count 92 10^3/uL (130-400)
[2019-11-27 10:18] LABS: Anisocytosis 1+; Diff Comment RBC Morph Reviewed; Macrocytosis 2+; Poikilocytes 1+; Polychromasia Present
[2019-11-28 10:35] LABS: IgA 53 mg/dL (85-499); IgG 449 mg/dL (610-1,616); IgM 21 mg/dL (35-242); Kappa Free Light Chain 0.61 mg/dL (0.33-1.94); Lambda Free Light Chain <0.44 mg/dL (0.57-2.63)
[2019-11-28 12:59] LABS: Total Protein 5.5 g/dL (6.3-8.2)
== END 2019-12-04 23:59 | disposition home or self-care (01) ==
LOC: INF 09:00
PROVIDERS: Nurse Practitioner Family; PCP Neuromusculoskeletal Medicine & OMM; Visit Provider Internal Medicine Hematology & Oncology
DX: C90.00 Multiple myeloma not having achieved remission (principal); Z45.2 Encounter for adjustment and management of vascular access device
CPT/HCPCS: 36591; 80053; 82784; 83883; 84165; 85025

== ENCOUNTER 2019-12-11 01:01 | Outpatient (RCR) | payer MEDICAID, SELFPAY | END 2020-01-04 23:59 | disposition home or self-care (01) | LOC: INF 01:01 | PROVIDERS: PCP Neuromusculoskeletal Medicine & OMM; Visit Provider Nurse Practitioner Family | DX: Z53.9 Procedure and treatment not carried out, unspecified reason (principal) ==